=== PATIENT | male | born 1950 | race Caucasian/White ===

== ENCOUNTER → 2019-01-15 16:00 | Outpatient (CLI) | payer MEDICARE, BC, SELFPAY ==
--- NOTE | 2019-01-15 | DI.RAD.S_ITS ---
PROCEDURE: XR CERVICAL SPINE 4V OR 5V INDICATIONS: CERVICAL PAIN TECHNIQUE: 5 views of the cervical spine acquired. COMPARISON: None. FINDINGS: Bones: No fractures or dislocations to the C7 level. Oblique images demonstrate no bony foraminal stenoses. Mild endplate osteophyte formation at C4-C5, C5-C6, and C6-C7. Facet hypertrophy throughout the mid and lower cervical spine. Moderate foraminal stenoses bilaterally at C4-C5. Soft tissues: No prevertebral soft tissue swelling. IMPRESSION: 1. Multilevel degenerative disc and facet disease. 2. Bilateral C4-C5 foraminal stenoses. Dictated by: Silvio Morse M.D. on 01/15/2019 at 17:07 Approved by: Silvio Morse M.D. on 01/15/2019 at 17:08
== END ==
PROVIDERS: Visit Provider Chiropractor Independent Medical Examiner
DX: M50.30 Other cervical disc degeneration, unspecified cervical region (principal); M54.2 Cervicalgia
CPT/HCPCS: 72050

== ENCOUNTER → 2020-03-17 10:56 | Outpatient (CLI) | payer MEDICARE, BC, SELFPAY ==
--- NOTE | 2020-03-17 10:58 | DI.RAD.S_ITS ---
PROCEDURE: XR ANKLE RT MIN 3V INDICATIONS: tripped, r/o bony abnormality, h/o gout, r/o gout TECHNIQUE: 3 views of the ankle were acquired. COMPARISON: None. FINDINGS: Bones: No fractures or dislocations. There is minimal tibiotalar joint degeneration with minimal osteophytosis anteriorly. No discrete bony erosions. Ankle mortise is normally aligned. There is a small density along the medial talar dome. Soft tissues: There is a moderate tibiotalar joint effusion. Periarticular soft tissue swelling is demonstrated at the ankle most prominent laterally. Achilles tendon appears intact with a small enthesophyte at its insertion. Small linear calcifications are also demonstrated within the distal Achilles tendon as well as the proximal plantar fascia. IMPRESSION: 1. No fracture or dislocation. 2. Moderate-sized joint effusion. 3. Minimal osteophytosis along the tibiotalar joint suggestive of mild osteoarthritic changes. 4. 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 No discrete bony erosions. Dictated by: Harshal Caballero M.D. on 03/17/2020 at 11:17 Approved by: Harshal Caballero M.D. on 03/17/2020 at 11:27
== END ==
PROVIDERS: Referring Provider Physician Assistant; Visit Provider Physician Assistant
DX: M25.471 Effusion, right ankle (principal)
CPT/HCPCS: 73610

== ENCOUNTER → 2020-05-15 07:33 | Outpatient (CLI) | payer MEDICARE, BC, SELFPAY ==
[2020-05-15 09:14] LABS: Alanine Aminotransferase 23 IU/L (<50); Albumin 4.2 g/dL (3.5-5.0); Albumin Globulin Ratio 1.6 (1.0-2.8); Alkaline Phosphatase 64 U/L (38-126); Aspartate Aminotransferase 27 IU/L (17-59); BUN Creatinine Ratio 21.4 (6-22); Bilirubin Total 1.5 mg/dL (0.2-1.3); Blood Urea Nitrogen 24 mg/dL (9-20); Calcium 9.8 mg/dL (8.4-10.2); Carbon Dioxide 29 mmol/L (22-32); Chloride 106 mmol/L (98-107); Estimated Glomerular Filt Rate > 60.0 mL/min (>60); Globulin 2.7 g/dL (1.7-4.1); Glucose 120 mg/dL (80-110); HEMOLYSIS < 15 (0-50); Potassium 4.3 mmol/L (3.4-5.1); Sodium 139 mmol/L (137-145); Total Protein 6.9 g/dL (6.3-8.2); Uric Acid 8.8 mg/dL (3.5-8.5)
== END ==
PROVIDERS: PCP Internal Medicine; Referring Provider Internal Medicine; Visit Provider Internal Medicine
DX: E78.2 Mixed hyperlipidemia (principal); I10 Essential (primary) hypertension; M10.00 Idiopathic gout, unspecified site
CPT/HCPCS: 36415; 80053; 83036; 84550

== ENCOUNTER → 2020-07-01 14:40 | Outpatient (CLI) | payer MEDICARE, BC, SELFPAY ==
[2020-07-01 16:37] LABS: COVID19 -Nasal RAPID Negative (Negative)
== END ==
PROVIDERS: PCP Internal Medicine; Visit Provider Physician Assistant
DX: Z01.812 Encounter for preprocedural laboratory examination (principal); Z20.822 Contact with and (suspected) exposure to COVID-19
CPT/HCPCS: 87635; C9803

== ENCOUNTER → 2020-07-18 08:56 | Outpatient (CLI) | payer MEDICARE, BC, SELFPAY ==
[2020-07-18 10:08] LABS: BUN Creatinine Ratio 23.1 (6-22); Blood Urea Nitrogen 24 mg/dL (9-20); Calcium 9.8 mg/dL (8.4-10.2); Carbon Dioxide 31 mmol/L (22-32); Chloride 104 mmol/L (98-107); Estimated Glomerular Filt Rate > 60.0 mL/min (>60); Glucose 120 mg/dL (80-110); HEMOLYSIS < 15 (0-50); Potassium 4.4 mmol/L (3.4-5.1); Sodium 139 mmol/L (137-145); Uric Acid 5.9 mg/dL (3.5-8.5)
== END ==
PROVIDERS: PCP Internal Medicine; Referring Provider Internal Medicine; Visit Provider Internal Medicine
DX: R73.02 Impaired glucose tolerance (oral) (principal); M10.00 Idiopathic gout, unspecified site; I10 Essential (primary) hypertension
CPT/HCPCS: 36415; 80048; 84550

== ENCOUNTER → 2020-07-21 10:59 | Outpatient (CLI) | payer MEDICARE, BC, SELFPAY ==
[2020-07-21] MEDS: COVID-19 VACC #1, MRNA(MOD) 100 MCG/0.5 ML VIAL IM (11:03)
== END ==
PROVIDERS: PCP Internal Medicine; Visit Provider Internal Medicine
DX: Z23 Encounter for immunization (principal)
CPT/HCPCS: 0011A; 91301

== ENCOUNTER → 2020-08-18 11:52 | Outpatient (CLI) | payer MEDICARE, BC, SELFPAY ==
[2020-08-18] MEDS: COVID-19 VACC #2, MRNA(MOD) 100 MCG/0.5 ML VIAL IM (12:00)
== END ==
PROVIDERS: PCP Internal Medicine; Visit Provider Internal Medicine
DX: Z23 Encounter for immunization (principal)
CPT/HCPCS: 0012A; 91301

== ENCOUNTER → 2020-09-12 11:42 | Outpatient (CLI) | payer MEDICARE, OTHER, SELFPAY ==
[2020-09-12 12:46] LABS: BUN Creatinine Ratio 18.5 (6-22); Blood Urea Nitrogen 20 mg/dL (9-20); Calcium 9.7 mg/dL (8.4-10.2); Carbon Dioxide 31 mmol/L (22-32); Chloride 102 mmol/L (98-107); Estimated Glomerular Filt Rate > 60.0 mL/min (>60); Glucose 119 mg/dL (80-110); HEMOLYSIS < 15 (0-50); Potassium 4.2 mmol/L (3.4-5.1); Sodium 137 mmol/L (137-145); Uric Acid 5.7 mg/dL (3.5-8.5)
== END ==
PROVIDERS: PCP Internal Medicine; Referring Provider Internal Medicine; Visit Provider Internal Medicine
DX: I10 Essential (primary) hypertension (principal); M10.00 Idiopathic gout, unspecified site
CPT/HCPCS: 36415; 80048; 84550

== ENCOUNTER → 2022-01-11 10:31 | Outpatient (CLI) | payer MEDICARE, OTHER, SELFPAY ==
[2022-01-11 11:02] LABS: Hematocrit 48.8 % (41-53); Hemoglobin 16.9 g/dL (13.5-17.5); Mean Corpuscular HGB Conc 34.7 % (30-36); Mean Corpuscular Hemoglobin 34.7 PG (26-34); Mean Corpuscular Volume 99.9 fL (80-100); Platelet Count 197 X10^3/uL (150-400); Red Blood Cell Count 4.88 X10^6/uL (4.5-5.9); Red Cell Distribution Width 14.7 % (11.6-14.8); White Blood Cell Count 5.7 X10^3/uL (4.5-11.0)
[2022-01-11 11:11] LABS: Hemoglobin A1C% w Est Avg Glu 5.6 % (4.0-6.0)
[2022-01-11 11:43] LABS: Alanine Aminotransferase 23 IU/L (<50); Albumin 4.8 g/dL (3.5-5.0); Alkaline Phosphatase 67 U/L (38-126); Aspartate Aminotransferase 30 IU/L (17-59); BUN Creatinine Ratio 18.8 (6-22); Bilirubin Total 2.2 mg/dL (0.2-1.3); Blood Urea Nitrogen 19 mg/dL (9-20); Calcium 9.8 mg/dL (8.4-10.2); Carbon Dioxide 29 mmol/L (22-32); Chloride 100 mmol/L (98-107); Cholesterol 151 mg/dL (140-199); Estimated Glomerular Filt Rate > 60 mL/min (>60); Globulin 2.4 g/dL (1.7-4.1); Glucose 118 mg/dL (80-110); HDL Cholesterol 68 mg/dL (40-60); HEMOLYSIS < 15 (0-50); LDL Cholesterol Calculated 62 mg/dL (<100); Potassium 4.7 mmol/L (3.4-5.1); Sodium 139 mmol/L (137-145); Total Protein 7.2 g/dL (6.3-8.2); Triglycerides 103 mg/dL (35-150); Uric Acid 6.2 mg/dL (3.5-8.5)
[2022-01-11 12:11] LABS: Prostate Specific Antigen 1.54 ng/mL (0.10-4.00)
[2022-01-11 12:30] LABS: Vitamin B12 586 pg/mL (239-931)
[2022-01-12 16:44] LABS: Free T4, Direct Thyroxine 1.06 ng/dL (0.78-2.19)
== END ==
PROVIDERS: PCP Internal Medicine; Referring Provider Internal Medicine; Visit Provider Internal Medicine
DX: E78.2 Mixed hyperlipidemia (principal); R73.01 Impaired fasting glucose; N40.0 Benign prostatic hyperplasia without lower urinary tract symptoms; K22.2 Esophageal obstruction; Z85.810 Personal history of malignant neoplasm of tongue; E53.8 Deficiency of other specified B group vitamins; M10.9 Gout, unspecified
CPT/HCPCS: 36415; 80053; 80061; 82607; 83036; 84153; 84439; 84443; 84550; 85027

== ENCOUNTER → 2022-01-18 08:17 | Outpatient (CLI) | payer MEDICARE, OTHER, SELFPAY ==
--- NOTE | 2022-01-18 08:19 | DI.RAD.S_ITS ---
PROCEDURE: FL UPPER GI SERIES INDICATIONS: esophageal stricture COMPARISON: None. FINDINGS: KUB: Preprocedural counselor supervisor film demonstrates a normal bowel gas pattern. No suspicious abdominal calcifications. Visualized solid organ contours appear normal. Bony structures appear unremarkable. Esophagus: Esophageal mucosa is normal on air-contrast views. On single-contrast views, there were numerous episodes of moderate tertiary contractions resulting in delayed and occasional retrograde flow of ingested oral contrast. Otherwise, normal esophageal peristalsis. No extrinsic mass effects, or diverticula. No hiatal hernia or elicited gastroesophageal reflux. There is no definite focal stricture however, there was delayed transit of calibrated barium tablet through the gastroesophageal junction. The tablet persisted at the GE junction throughout most of this examination and eventually passed. Stomach: The stomach is normally distensible, with normal rugal fold thickness. No mucosal masses or ulcers. Pylorus and duodenal bulb appear normal in morphology. Duodenal folds are normal in thickness as well. IMPRESSION: 1. Suspected minimal/mild narrowing of the distal esophagus at the gastroesophageal junction with delayed transit of calibrated barium tablet into the stomach. No suspicious intraluminal filling defects or extrinsic mass effect in the region. No obvious stricture. Consider further evaluation with direct visualization/EGD. 2. Numerous episodes of moderate tertiary contractions/esophageal spasms resulting in delayed and occasional retrograde flow of ingested oral contrast. Dictated by: Hernan Walters M.D. on 01/18/2022 at 12:49 Approved by: Hernan Walters M.D. on 01/18/2022 at 12:55
== END ==
PROVIDERS: PCP Internal Medicine; Referring Provider Internal Medicine; Visit Provider Internal Medicine
DX: K22.2 Esophageal obstruction (principal)
CPT/HCPCS: 74240

== ENCOUNTER 2022-05-27 11:27 | Day surgery (SDC) | payer MEDICARE, OTHER, SELFPAY ==
--- NOTE | 2022-05-27 | PATH_ITS ---
[facility] Accession Number: [id number] . 01 Material submitted: . PART A: duodenum bulb - DUODENAL BULB BIOPSY PART B: gastrointestinal site - GASTRIC ULCER BIOPSY PART C: stomach - ANTRUM BIOPSY. Modifiers: ANTRUM PART D: esophagus - MID ESOPHAGUS BIOPSY. Modifiers: mid PART E: colon - COLON POLYPS X6 . 01 Diagnosis: A. Duodenum, Biopsy: Duodenal mucosa with focal erosion. No dysplasia or malignancy identified. See comment. . B. Specimen designated Gastric Ulcer, Biopsy: Gastric mucosa with mild chronic inflammation. No Helicobacer pylori organisms identified on immunohistochemical evaluation. No intestinal metaplasia, dysplasia or malignancy identified. . C. Gastric Antrum, Biopsy: Gastric mucosa with mild chronic inflammation. No Helicobacer pylori organisms identified on immunohistochemical evaluation. No intestinal metaplasia, dysplasia or malignancy identified. . D. Mid Esophagus, Biopsy: Squamous mucosa with slight reactive changes but with no significant diagnostic alterations. No fungal organisms identified on special stain. No evidence of eosinophilic esophagitis. No dysplasia or malignancy identified. . E. Colon Polyps, Biopsy: Sessile serrated adenoma x1. Tubular adenoma x5. Hyperplastic polyp x1. [facility] 05/31/2022 1140 Local . 01 Comment: E. The features raise a differential including peptic duodenitis or NSAID induced injury, among other possibilities. . 01 Electronically signed: . Alexandra Ashby MD, Pathologist NPI- [id number] . 01 Gross description: . Part A: DUODENAL BULB BIOPSY: Received in formalin are 2 fragment(s) of french, soft tissue measuring 0.2 x 0.1 x 0.1 cm to 0.1 x 0.1 x 0.1 cm submitted entirely in 1 cassette(s) Part B: GASTRIC ULCER BIOPSY: Received in formalin is 1 fragment(s) of french, soft tissue measuring 0.3 x 0.2 x 0.2 cm submitted entirely in 1 cassette(s) Part C: ANTRUM BIOPSY: Received in formalin is 1 fragment(s) of french, soft tissue measuring 0.3 x 0.2 x 0.1 cm submitted entirely in 1 cassette(s) Part D: MID ESOPHAGUS BIOPSY: Received in formalin are multiple fragment(s) of french, soft tissue measuring 0.5 x 0.3 x 0.1 cm in aggregate submitted entirely in 1 cassette(s) Part E: COLON POLYPS X6: Received in formalin are multiple fragment(s) of french, soft tissue measuring 1.3 x 0.3 x 0.1 cm in aggregate submitted entirely in 1 cassette(s) /CPE 05/28/2022 0855 Local . 01 Microscopic: . B-C. An immunohistochemical stain was performed to evaluate for Helicobacter organisms and is negative. The control stain showed appropriate reactivity. . 01 Pathologist provided ICD-10: K26.9, K29.70, D12.6, Z12.11, R13.10 . 01 CPT . 273048, 837026, 603070, 454236, [id number], 556012 Specimen Comment: A courtesy copy of this report has been sent to [phone] Performed at: 01 [facility] [address] [place] [address], [place], [place] [id number] MD Harshal Pierre MD Phone: [phone]
--- NOTE | 2022-05-27 11:43 | PM.HP.1 ---
History of Present Illness History of Present Illness Date Patient Seen: 05/27/22 Time Patient Seen: 11:43 Chief complaint: EGD/Colonoscopy Narrative: I reviewed my recent office note. No significant changes. 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 Impaired fasting glucose Mixed hyperlipidemia Polyneuropathy, unspecified Tinea unguium Family & Social History Tobacco & Substance use: Smoking Status Former smoker Meds Home Medications and Allergies Home Medications Medication Instructions Recorded Confirmed Type triamterene 37.5 1 cap PO DAILY 11/25/18 01/11/22 History mg-hydrochlorothiazide 25 mg capsule levomefolate 500 mcg-niacinamide 1 tab PO BID 01/11/22 01/11/22 History 750 bl-laqftd-Ps-selen-chrom tablet (Nicotinamide (with chromium)) loratadine 10 mg tablet 10 mg PO DAILY Itching skin 01/11/22 01/11/22 History lorazepam 0.5 mg tablet 0.5 mg PO BEDTIME PRN anxiety #20 01/11/22 01/11/22 Rx tabs prednisone 10 mg tablet See Rx Instructions .Route 01/11/22 01/11/22 Rx .COMPLEX #20 tabs allopurinol 300 mg tablet 300 mg PO DAILY Gout #90 tabs 05/06/22 Rx atorvastatin 20 mg tablet (Lipitor) 20 mg PO DAILY #90 tabs 05/06/22 Rx triamterene 37.5 1 cap PO DAILY #90 caps 05/06/22 Rx mg-hydrochlorothiazide 25 mg capsule lisinopril 10 mg tablet 10 mg PO DAILY #90 tabs 05/13/22 Rx Allergies Allergy/AdvReac Type Severity Reaction Status Date / Time fluvastatin [From Lescol] Allergy Severe Hives Verified 01/11/22 07:42 Review of Systems Review of Systems ROS: Yes All systems reviewed with the patient and are negative except as otherwise documented Exam Const General: cooperative HENMT Head: normal to inspection Eyes General: appearance normal, both eyes and all related structures Neck Neck: normal visual inspection Chest Chest: normal inspection of the chest Resp Effort & Inspection: normal respiratory effort Cardio Rate: regular rate GI Inspection: normal to inspection Skin General: no rashes or lesions noted Neuro General: patient alert and patient awake Extrem General: normal to inspection and no pedal edema Psych Appearance: grossly normal Assessment & Plan Assessment & Plan narrative: 71-year-old male with a history of esophageal stricture and dilatations now with recurrent dysphagia. EGD for possible dilatation and colonoscopy for colon cancer screening are pursued today. Time Spent With Patient Critical Care time: I spent a total of [] minutes of critical care time on this patient's care today; this time is exclusive of procedural time.
[2022-05-27 12:02] VITALS: BP 139/86; PULSE 97; RESP 18; TEMP 36.4; O2SAT 97; BMI 29.9
[2022-05-27] MEDS: LACTATED RINGERS 1,000 ML 84 ML IV (12:02)
--- NOTE | 2022-05-27 12:47 | PM.PREOP ---
Pre-operative Note COVID-19 COVID-19 status: Negative Result date/Date tested (Pos, Neg/Pending): 05/27/22 Criteria for continued procedure: Possibility delay results in more complex future surgery or treatment Interval Note History & Physical reviewed/Exam performed by Physician: Yes Changes to H&P: No ASA Class (for procedural sedation): II
--- NOTE | 2022-05-27 13:47 | P.OP.EGD&C_ITS ---
Operative Date/Time/Diagnoses Date of procedure: 05/27/22 Time of procedure: 13:47 Pre-op diagnosis: Dysphagia colon cancer screening Post-op diagnosis: same Procedure & Clinicians Study performed: EGD with biopsies and balloon dilatation plus colonoscopy with hot snare polypectomy cold snare polypectomy and cold forceps polypectomy Same procedure as scheduled: Yes Indications: Dysphagia colon cancer screening Surgeon: Lamin Esposito Procedure Notes SCOAP/Timeout: Done Procedure in detail: After the risks and benefits were explained, written and verbal informed consent was obtained. The patient was brought into the procedure room and placed into the left lateral decubitus position. Please see nurse kieselguhr regenerator operator notes for sedation details. The scope was introduced into the mouth through the bite block and advanced under direct visualization to the 2nd portion of the duodenum. The scope was slowly withdrawn carefully examining the mucosa for any defects or lesions. Retroflexed views were accomplished in the stomach. The stomach was decompressed, the scope was then removed from the patient who tolerated the procedure well. The patient was then turned around, a digital rectal examination accomplished. The scope was introduced into the rectum and advanced to the cecum as identified by the appendiceal orifice and ileocecal valve. The scope was slowly withdrawn to carefully examine the mucosa for any defects or lesions. Multiple direct views were made through the dentate line for exclusion of pathology. The colon was decompressed. The the scope was removed from the patient who tolerated the procedure well. Bowel prep adequate Adult colonoscope Scope withdrawal time: 16 minutes Sedation minutes: 54 Complications: none Impression: 1. Duodenum: There were scattered erosions noted in the duodenal bulb. The 2nd portion appeared normal with the exception of a few benign-appearing small submucosal lipomas the demonstrated fairly classic pillowing. Biopsies were taken from the eroded mucosa in the proximal duodenum. 2. Stomach: There was evidence of an old fairly well healed well epithelialized ulcer with asymmetric borders along the greater curve. I took samples from the area of this ulcer for histopathologic analysis. Otherwise the antral mucosa appeared erythematous with patchy white areas. We took separate biopsies from the antrum as well. Retroflexed views of the LES were unremarkable. 3. Esophagus: The squamocolumnar junction correlated with the top of the gastric folds. The GEJ was at approximately 44-45 cm from the incisors. On initial inspection it appeared as though there was couple of nonobstructing partial Schatzki rings in the distal esophagus. I elected to perform a balloon dilatation using the 15, 16.5, 18 mm balloon and holding it at each dimension for approximately 1 minute each time. There was a small rent in the mucosa at the GE junction consistent with dilatation. While we were dilating the esophagus closer inspection of the distal esophageal mucosa suggested evidence of erosive change consistent with at least LA grade C esophagitis. In the midesophagus there were areas of some exudate versus white plaque somewhat linear in many locations. Ideally we would have obtained a brushing for exclusion of yeast but the endoscopy lab did not have the appropriate brush so I elected to take a couple of biopsies from these areas in midesophagus. 4. Colon: The patient had fairly extensive diverticulosis from the sigmoid through into transverse colon. In the right colon there were 5 diminutive polyps removed by way of a combination of cold snare (4) and cold forceps (1). There was a 6th polyp in the transverse that was perhaps 6-7 mm in greatest dimension and hot snare was utilized for this one. All of these were submitted as ?colon polyps?. No additional pathology was appreciated throughout. Perhaps grade 1 to grade 2 internal hemorrhoids. Endoscopic diagnosis 1. Nonobstructing distal Schatzki's rings status post balloon dilatation to 18 mm 2. LA grade C erosive esophagitis 3. Possible esophageal candidiasis (versus more extensive erosive esophagitis) 4. Healing gastric ulcer 5. Gastropathy 6. Duodenal erosions 7. Duodenal lipoma 8. Multiple colon polyps 9. Diverticulosis 10. Grade 1-2 hemorrhoids Post-procedure Plan for aftercare: 1. Await histopathology. 2. Repeat colonoscopy will likely be suggested for 3 years. 3. The patient is encouraged to initiate a course of omeprazole 20 mg once daily. 4. Follow up GI clinic Disposition: PACU
[2022-05-27 13:51] VITALS: BP 100/65; PULSE 75; RESP 15; TEMP 36.3; O2SAT 96
[2022-05-27 13:54] VITALS: BP 108/62; PULSE 76; RESP 15; O2SAT 95
[2022-05-27 13:59] VITALS: BP 120/76; PULSE 75; RESP 19; O2SAT 98
[2022-05-27 14:04] VITALS: BP 118/69; PULSE 71; PULSE 72; RESP 20; RESP 70; O2SAT 98; O2SAT 99
[2022-05-27 14:10] VITALS: BP 121/82; PULSE 70; RESP 11; TEMP 36.6; O2SAT 98
[2022-05-27 14:34] LABS: COVID19 -Nasal RAPID Negative (Negative)
== END 2022-05-27 14:20 | disposition home or self-care (01) ==
PROVIDERS: PCP Internal Medicine; Referring Provider Internal Medicine Gastroenterology; Visit Provider Internal Medicine Gastroenterology
PROC: 0DJD8ZZ Inspection of Lower Intestinal Tract, Via Natural or Artificial Opening Endoscopic (ICD-10-PCS; CPT 45378; principal; 2022-05-27 12:30)
PROC: 0DJ08ZZ Inspection of Upper Intestinal Tract, Via Natural or Artificial Opening Endoscopic (ICD-10-PCS; CPT 43235; 2022-05-27 12:30)
DX: Z12.11 Encounter for screening for malignant neoplasm of colon (principal); R13.10 Dysphagia, unspecified; Z20.822 Contact with and (suspected) exposure to COVID-19; K61.0 Anal abscess; K57.30 Diverticulosis of large intestine without perforation or abscess without bleeding; D17.5 Benign lipomatous neoplasm of intra-abdominal organs; K31.9 Disease of stomach and duodenum, unspecified; K20.80 Other esophagitis without bleeding; K22.2 Esophageal obstruction; K26.9 Duodenal ulcer, unspecified as acute or chronic, without hemorrhage or perforation; D12.2 Benign neoplasm of ascending colon; D12.3 Benign neoplasm of transverse colon; D12.6 Benign neoplasm of colon, unspecified; K29.50 Unspecified chronic gastritis without bleeding
CPT/HCPCS: 43249; 45385; 45380; 43239; 87635; C9803; J2704

== ENCOUNTER → 2022-05-29 10:25 | Outpatient (CLI) | payer MEDICARE, OTHER, SELFPAY ==
--- NOTE | 2022-05-29 10:27 | DI.RAD.S_ITS ---
PROCEDURE: XR SHOULDER RT MIN 2V INDICATIONS: eval R shoulder pain s/p trauma TECHNIQUE: 3 views of the shoulder were acquired. COMPARISON: None. FINDINGS: Bones: No fractures or dislocations. No suspicious bony lesions. Visualized ribs appear intact. Soft tissues: No suspicious soft tissue calcifications. IMPRESSION: No acute radiographic findings. If pain persists, followup imaging in 5-7 days is recommended to exclude occult fracture. Dictated by: Eliana Carbajal M.D. on 05/29/2022 at 10:49 Approved by: Eliana Carbajal M.D. on 05/29/2022 at 10:49
== END ==
PROVIDERS: PCP Internal Medicine; Referring Provider Registered Nurse Diabetes Educator; Visit Provider Registered Nurse Diabetes Educator
DX: M25.511 Pain in right shoulder (principal)
CPT/HCPCS: 73030

== ENCOUNTER → 2022-07-25 10:17 | Outpatient (CLI) | payer MEDICARE, OTHER, SELFPAY ==
[2022-07-25 11:22] LABS: Hemoglobin A1C% w Est Avg Glu 5.8 % (4.0-6.0)
[2022-07-25 11:35] LABS: Blood Urea Nitrogen 28 mg/dL (9-20); Calcium 9.6 mg/dL (8.4-10.2); Carbon Dioxide 29 mmol/L (22-32); Chloride 100 mmol/L (98-107); Estimated Glomerular Filt Rate > 60 mL/min (>60); Glucose 107 mg/dL (80-110); HEMOLYSIS < 15 (0-50); Potassium 4.4 mmol/L (3.4-5.1); Sodium 139 mmol/L (137-145)
[2022-07-25 12:01] LABS: TSH w/ Reflex to FT4 5.66 uIU/mL (0.47-4.68)
[2022-07-25 12:32] LABS: Free T4, Direct Thyroxine 0.89 ng/dL (0.78-2.19)
== END ==
PROVIDERS: PCP Internal Medicine; Referring Provider Internal Medicine; Visit Provider Internal Medicine
DX: R73.01 Impaired fasting glucose (principal); I10 Essential (primary) hypertension; R79.89 Other specified abnormal findings of blood chemistry
CPT/HCPCS: 36415; 80048; 83036; 84439; 84443

== ENCOUNTER → 2023-07-28 08:35 | Outpatient (CLI) | payer MEDICARE, OTHER, SELFPAY ==
--- NOTE | 2023-07-28 08:38 | DI.RAD.S_ITS ---
PROCEDURE: XR CHEST 2V INDICATIONS: shortness of breath TECHNIQUE: 2 views of the chest were acquired. COMPARISON: None. FINDINGS: Surgical changes and devices: On single contrast views Lungs and pleura: Lungs are clear. No pleural effusions or pneumothorax. Mediastinum: Mediastinal contours are normal. Heart size is enlarged. Bones and chest wall: No suspicious bony abnormalities. Soft tissues appear unremarkable. IMPRESSION: Cardiomegaly. No focal airspace consolidation. Approved by: Deisy Eldridge M.D. on 07/28/2023 at 12:11
[2023-07-28 10:18] LABS: Hematocrit 46.3 % (41-53); Hemoglobin 15.9 g/dL (13.5-17.5); Mean Corpuscular HGB Conc 34.2 % (30-36); Mean Corpuscular Hemoglobin 35.8 PG (26-34); Mean Corpuscular Volume 104.7 fL (80-100); Platelet Count 174 X10^3/uL (150-400); Red Blood Cell Count 4.42 X10^6/uL (4.5-5.9); Red Cell Distribution Width 14.7 % (11.6-14.8); White Blood Cell Count 5.1 X10^3/uL (4.5-11.0)
[2023-07-28 10:45] LABS: Hemoglobin A1C% w Est Avg Glu 5.5 % (4.0-6.0)
[2023-07-28 10:53] LABS: Aspartate Aminotransferase 37 IU/L (17-59); BUN Creatinine Ratio 20.9 (6-22); Blood Urea Nitrogen 24 mg/dL (9-20); Carbon Dioxide 25 mmol/L (22-32); Chloride 101 mmol/L (98-107); Cholesterol 137 mg/dL (140-199); Estimated Glomerular Filt Rate > 60 mL/min (>60); Glucose 100 mg/dL (80-110); HDL Cholesterol 62 mg/dL (40-60); HEMOLYSIS < 15 (0-50); LDL Cholesterol Calculated 62 mg/dL (<100); Potassium 4.5 mmol/L (3.4-5.1); Sodium 136 mmol/L (137-145); Triglycerides 64 mg/dL (35-150)
[2023-07-28 11:20] LABS: TSH w/ Reflex to FT4 7.31 uIU/mL (0.47-4.68)
[2023-07-28 11:54] LABS: Free T4, Direct Thyroxine 0.84 ng/dL (0.78-2.19)
== END ==
PROVIDERS: PCP Internal Medicine; Referring Provider Internal Medicine; Visit Provider Internal Medicine
DX: R06.2 Wheezing (principal); R06.02 Shortness of breath; R79.89 Other specified abnormal findings of blood chemistry; E78.2 Mixed hyperlipidemia; I10 Essential (primary) hypertension; R73.01 Impaired fasting glucose
CPT/HCPCS: 36415; 71046; 80048; 80061; 83036; 84439; 84443; 84450; 85027; 93005

== ENCOUNTER → 2023-08-26 | Outpatient (CLI) | payer MEDICARE, OTHER, SELFPAY ==
--- NOTE | 2023-08-27 19:24 | DI.NM.S_ITS ---
DATE OF SERVICE: 08/26/2023 PROCEDURE PERFORMED: Exercise treadmill stress and rest myocardial perfusion imaging with gating to assess ejection fraction and regional wall motion. DATE OF SERVICE: August 26, 2023. ORDERING PROVIDER: Hira Fernandez MD. INDICATIONS: The patient is a 72-year-old hypertensive male with significant exertional dyspnea. TREADMILL TESTING: The patient was able to exercise for only 3 minutes on a standard Mehdi protocol, going an additional 1 minute, 32 seconds at Stage I, suggesting markedly reduced exercise capacity with an BOA of +42%, achieving only 4.6 METs. He had a normal normal heart rate and blood pressure response to exercise, achieving a maximum heart rate of 134 bpm (92% of his predicted maximum). He had no chest discomfort, but had limiting dyspnea. His resting ECG shows sinus rhythm and occasional PVCs, and mild diffuse ST and T-wave abnormalities. There are no significant ST-segment shifts with stress. He continued to have PVCs, rarely in couplets, but no other complex ventricular ectopy. At 3 minutes 20 seconds of exercise at a heart rate of 124 BPM, 25.4 mCi of technetium-99m Myoview was injected and he was imaged 15 minutes later using a gated SPECT acquisition protocol. The day prior while at rest, he had been injected with 24.7 mCi of technetium-99m Myoview and was imaged 15 minutes later, again using a gated SPECT acquisition protocol. FINDINGS: 1. Raw data. There is fair myocardial tracer uptake. The right ventricle appears to be somewhat enlarged with increased tracer uptake which can be an indication of a right ventricular overload condition, but clinical correlation is needed. The lung/heart ratio is normal at 0.33 with a normal TID ratio of 0.91. 2. Quantitated gated SPECT: Post-stress ejection fraction is estimated at 57% without any focal wall motion abnormality, and specifically the inferior wall appears to have normal contractility. The resting ejection fraction is calculated at 47%, although visually appears similar to that of the post-stress ejection fraction, and left ventricular volumes are mildly increased with a resting end-diastolic volume of 154 mL. 3. Myocardial perfusion imaging: Post-stress supine images show mild to moderately reduced tracer activity in the inferior wall, predominantly in the proximal and mid inferior wall in a pattern that consistent with diaphragmatic attenuation, supported by its resolution on the prone images, revealing a homogeneous, normal perfusion pattern without any perfusion defects. The resting images show an identical perfusion pattern to that of the post-stress supine images without any significant improvement in the inferior defect or elsewhere. IMPRESSION: 1. Probable normal myocardial perfusion study. 2. Moderate, fixed perfusion defect in the proximal and mid inferior wall that resolves on prone imaging, most consistent with diaphragmatic attenuation artifact. There is no compelling evidence for any myocardial ischemia or previous myocardial infarction. 3. Normal left ventricular systolic function without any focal wall motion abnormality but mildly increased left ventricular volumes. The right ventricle is mildly enlarged with increased tracer uptake, which can be an indication of a right ventricular overload condition but clinical correlation is needed. 4. Markedly reduced exercise capacity without angina or ECG evidence of ischemia. He had occasional PVCs at rest with a slight increase with stress, including ventricular couplets, but no other complex ventricular ectopy. Reji Givens - ANGELY/mercedes/ doc#: [id number]/job#: [id number] dd: 08/27/2023 16:22:00 dt: 08/27/2023 19:06:00 DICTATING /COPIES TO: Igor Leyva; Hira Fernandez MD COPIES MNE: JOSE;
== END ==
PROVIDERS: PCP Internal Medicine; Referring Provider Internal Medicine; Visit Provider Internal Medicine
DX: R06.02 Shortness of breath (principal); R06.09 Other forms of dyspnea
CPT/HCPCS: 78452; 93017; A9502

== ENCOUNTER → 2023-09-30 14:43 | Outpatient (CLI) | payer MEDICARE, OTHER, SELFPAY ==
--- NOTE | 2023-09-30 14:45 | DI.RAD.S_ITS ---
PROCEDURE: XR CERVICAL SPINE MIN 6V INDICATIONS: cervical ddd/djd/pain TECHNIQUE: 7 views of the cervical spine acquired. COMPARISON: [facility], CR, XR CERVICAL SPINE 4V OR 5V, 01/15/2019, 16:22. FINDINGS: Bones: No fractures or dislocations to the T1 level. Oblique images demonstrate no bony foraminal stenoses. Moderate disc height loss at C6-7, mild disc height loss at C4-5 and C5-6, mildly progressed since prior. No abnormal motion with flexion or extension. Soft tissues: No prevertebral soft tissue swelling. Surgical clips project over the neck. IMPRESSION: Mild to moderate, multilevel degenerative disc disease, slightly progressed from prior. Dictated by: Paddy Rivas M.D. on 09/30/2023 at 16:44 Approved by: Paddy Rivas M.D. on 09/30/2023 at 16:45
== END ==
PROVIDERS: PCP Internal Medicine; Referring Provider Internal Medicine; Visit Provider Internal Medicine
DX: M47.812 Spondylosis without myelopathy or radiculopathy, cervical region (principal); M50.321 Other cervical disc degeneration at C4-C5 level
CPT/HCPCS: 72052

== ENCOUNTER → 2024-01-22 14:50 | Outpatient (CLI) | payer MEDICARE, OTHER, SELFPAY ==
--- NOTE | 2024-01-22 14:51 | DI.RAD.S_ITS ---
PROCEDURE: XR ANKLE LT MIN 3V INDICATIONS: pain TECHNIQUE: 3 views of the ankle were acquired. COMPARISON: None. FINDINGS: Bones: No fractures or dislocations. Ankle mortise is normally aligned. No suspicious bony lesions. Enthesophyte noted along the inferior calcaneus. Soft tissues: No tibiotalar joint effusion. Achilles tendon shows faint linear calcifications.. IMPRESSION: Calcaneal spur. Mild calcifications noted in the Achilles tendon. Dictated by: Eliseo Carpenter M.D. on 01/22/2024 at 15:53 Approved by: Eliseo Carpenter M.D. on 01/22/2024 at 15:56
== END ==
PROVIDERS: PCP Internal Medicine; Referring Provider Physician Assistant; Visit Provider Physician Assistant
DX: M76.60 Achilles tendinitis, unspecified leg (principal); M77.32 Calcaneal spur, left foot
CPT/HCPCS: 73610

== ENCOUNTER → 2024-01-23 09:12 | Outpatient (CLI) | payer MEDICARE, OTHER, SELFPAY ==
--- NOTE | 2024-01-23 09:14 | DI.US.S_ITS ---
PROCEDURE: US PERIPH VENOUS LOW EXTREM LT INDICATIONS: Swelling of lower extremity TECHNIQUE: Real-time imaging, as well as color and pulse Doppler interrogation, were performed of the lower extremity deep veins from the inguinal ligament to the popliteal fossa, with documentation of the visualized calf veins. COMPARISON: None. FINDINGS: The common femoral, femoral, popliteal, and the visualized calf veins are normally compressible, and free of intraluminal thrombus. Color and pulse Doppler demonstrate normal phasic intraluminal flow. There is normal augmentation response to distal compression maneuver. A few of the waveforms demonstrate increased pulsatility. Please correlate with right heart failure. IMPRESSION: No findings of lower extremity deep venous thrombosis. Dictated by: Cristhian Fong M.D. on 01/23/2024 at 9:44 Approved by: Cristhian Fong M.D. on 01/23/2024 at 9:45
[2024-01-23 12:27] LABS: BUN Creatinine Ratio 22.7 (6-22); Blood Urea Nitrogen 25 mg/dL (9-20); Calcium 9.3 mg/dL (8.4-10.2); Carbon Dioxide 25 mmol/L (22-32); Chloride 105 mmol/L (98-107); Creatine Kinase 166 U/L (55-170); Estimated Glomerular Filt Rate > 60 mL/min (>60); Glucose 101 mg/dL (80-110); HEMOLYSIS < 15 (0-50); Potassium 4.3 mmol/L (3.4-5.1); Sodium 137 mmol/L (137-145); Uric Acid 4.9 mg/dL (3.5-8.5)
== END ==
PROVIDERS: PCP Internal Medicine; Referring Provider Physician Assistant; Visit Provider Physician Assistant
DX: M79.89 Other specified soft tissue disorders (principal); M76.62 Achilles tendinitis, left leg
CPT/HCPCS: 36415; 80048; 82550; 84550; 93971

== ENCOUNTER → 2024-02-05 12:45 | Outpatient (CLI) | payer MEDICARE, OTHER, SELFPAY ==
--- NOTE | 2024-02-05 12:47 | DI.MRI.S_ITS ---
PROCEDURE: MR ANKLE LT WO CON INDICATIONS: LEFT ACHILLES TENDINITIS TECHNIQUE: Noncontrast sagittal T1 spin echo and T2 fast spin echo with fat saturation, axial proton density fast spin echo and T2 fast spin echo with fat saturation, coronal T1 spin echo and T2 fast spin echo with fat saturation through the ankle/hindfoot. COMPARISON: None. FINDINGS: Image quality: Excellent. Bones and joints: Diffuse soft tissue swelling and edema surrounding distal left lower leg and left midfoot and hindfoot. No discrete drainable fluid collection. There is mild to moderate midfoot and hindfoot joint osteoarthritis most notably involving 2nd through 4th TMT joints. No fracture or dislocation. Small osteochondral injury involving anterolateral weight-bearing portion of talar dome and adjacent distal tibial plafond. Small tibiotalar and subtalar joint effusion is seen, no loose bodies. Well-defined plantar calcaneal enthesophyte is noted. Medial structures: The posterior tibialis tendon is thickened with small amount of fluid distending tendon sheath at the level of distal talus and talonavicular joint. The flexor digitorum longus, and flexor hallucis longus tendons are intact. The posterior tibial neurovascular bundle appears normal within the tarsal tunnel, without extrinsic mass effect. The deltoid ligament and spring ligament are intact. Lateral structures: The anterior talofibular ligament thickened with intrasubstance T2 hyperintense signal. The calcaneofibular, and posterior talofibular ligaments appear mildly thickened with intrasubstance T2 hyperintense signal. More superiorly, the anterior and posterior tibiofibular ligaments appear intact, as is the intermalleolar ligament. The tibiofibular syndesmosis is normal in width at 2 mm or less. The peroneus longus and brevis tendons demonstrate normal location and morphology. Adjacent bony peroneal tubercle and retrotrochlear prominence are normal in size. The sinus tarsi demonstrates normal fatty signal, without edema, fibrosis, or cyst formation. Visualized sinus tarsi components (cervical ligament, interosseous talocalcaneal ligament, roots of the inferior extensor retinaculum) appear normal. Anterior structures: The tibialis anterior, extensor hallucis longus, and extensor digitorum longus tendons appear intact. The dorsal talonavicular ligament appears intact. Posterior and plantar structures: Thickened Achilles tendon with intrasubstance T2 hyperintense signal involving 4.3 cm segment of Achilles tendon approximately 4 cm from its insertion of posterior calcaneus consistent with low to moderate grade partial-thickness tear involving less than 50% of the Achilles tendon. Medial and lateral bands of the plantar fascia are of normal thickness. No abductor digiti quinti muscle atrophy to suggest Duarte neuropathy. IMPRESSION: 1. Low to moderate grade partial-thickness tear involving 4.3 cm segment of Achilles tendon approximately 4 cm from its insertion on posterior calcaneus. No full-thickness Achilles tendon rupture. 2. Soft tissue swelling and edema surrounding distal lower leg and extending to hindfoot and midfoot. No discrete drainable fluid collection. 3. [id number] osteoarthritic changes in midfoot and hindfoot more notably involving tibiotalar joint and 2nd through 4th TMT joints. No fracture or dislocation. Small osteochondral injuries involving anterior lateral talar dome weight-bearing portion and adjacent distal tibial plafond. Small joint effusion, no loose bodies. 4. Low-grade tenosynovitis involving posterior tibialis tendon near its distal insertion. 5. Sprain/low to moderate grade partial-thickness tear involving anterior talofibular ligament. Low-grade sprain involving posterior talofibular ligament and calcaneofibular ligament. No full-thickness ankle ligament rupture. Dictated by: James Harrison M.D. on 02/06/2024 at 8:55 Approved by: James Harrison M.D. on 02/06/2024 at 9:03
== END ==
PROVIDERS: PCP Internal Medicine; Referring Provider Orthopaedic Surgery Foot and Ankle Surgery; Visit Provider Orthopaedic Surgery Foot and Ankle Surgery
DX: S86.012A Strain of left Achilles tendon, initial encounter (principal); S93.492A Sprain of other ligament of left ankle, initial encounter; S93.412A Sprain of calcaneofibular ligament of left ankle, initial encounter; M76.62 Achilles tendinitis, left leg; M79.89 Other specified soft tissue disorders; M25.475 Effusion, left foot; M65.862 Other synovitis and tenosynovitis, left lower leg
CPT/HCPCS: 73721

== ENCOUNTER → 2024-06-11 10:57 | Outpatient (CLI) | payer MEDICARE, OTHER, SELFPAY ==
[2024-06-11 11:58] LABS: BUN Creatinine Ratio 26.3 (6-22); Blood Urea Nitrogen 31 mg/dL (9-20); Calcium 10.1 mg/dL (8.4-10.2); Carbon Dioxide 32 mmol/L (22-32); Chloride 101 mmol/L (98-107); Estimated Glomerular Filt Rate > 60 mL/min (>60); Glucose 105 mg/dL (80-110); HEMOLYSIS < 15 (0-50); Potassium 4.2 mmol/L (3.4-5.1); Sodium 136 mmol/L (137-145)
== END ==
PROVIDERS: PCP Internal Medicine; Referring Provider Family Medicine; Visit Provider Family Medicine
DX: R60.0 Localized edema (principal); I87.2 Venous insufficiency (chronic) (peripheral)
CPT/HCPCS: 36415; 80048

== ENCOUNTER → 2024-08-05 10:55 | Outpatient (CLI) | payer MEDICARE, OTHER, SELFPAY ==
[2024-08-05 11:54] LABS: Alanine Aminotransferase 51 IU/L (<50); Albumin 4.8 g/dL (3.5-5.0); Albumin Globulin Ratio 2.4 (1.0-2.8); Alkaline Phosphatase 72 U/L (38-126); Aspartate Aminotransferase 71 IU/L (17-59); BUN Creatinine Ratio 25.4 (6-22); Bilirubin Total 2.9 mg/dL (0.2-1.3); Blood Urea Nitrogen 32 mg/dL (9-20); Carbon Dioxide 29 mmol/L (22-32); Chloride 100 mmol/L (98-107); Cholesterol 134 mg/dL (140-199); Estimated Glomerular Filt Rate 59 mL/min (>60); Glucose 115 mg/dL (80-110); HDL Cholesterol 76 mg/dL (40-60); HEMOLYSIS < 15 (0-50); LDL Cholesterol Calculated 45 mg/dL (<100); Sodium 139 mmol/L (137-145); Total Protein 6.8 g/dL (6.3-8.2); Triglycerides 67 mg/dL (35-150)
[2024-08-05 12:03] LABS: Add Manual Diff / Slide Review NO; Basophils Absolute Auto 0 /uL (0-100); Basophils Percent Auto 0.8 % (0-2); Eosinophils Absolute Auto 500 /uL (0-450); Eosinophils Percent Auto 9.6 % (2-4); Hematocrit 45.9 % (41-53); Hemoglobin 15.3 g/dL (13.5-17.5); Lymphocytes Absolute Auto 400 /uL (1100-4500); Lymphocytes Percent Auto 7.7 % (25-40); Mean Corpuscular HGB Conc 33.3 % (30-36); Mean Corpuscular Hemoglobin 36.9 PG (26-34); Mean Corpuscular Volume 110.9 fL (80-100); Monocytes Absolute Auto 800 /uL (0-900); Monocytes Percent Auto 15.7 % (3-14); Neutrophils Absolute Auto 3200 /uL (1500-7000); Neutrophils Percent Auto 66.2 % (50-75); Platelet Count 180 X10^3/uL (150-400); Red Blood Cell Count 4.13 X10^6/uL (4.5-5.9); Red Cell Distribution Width 16.7 % (11.6-14.8); White Blood Cell Count 4.9 X10^3/uL (4.5-11.0)
[2024-08-05 12:22] LABS: TSH w/ Reflex to FT4 4.53 uIU/mL (0.47-4.68)
[2024-08-05 13:13] LABS: Anisocytosis 2+; Macrocytosis 2+
== END ==
PROVIDERS: PCP Internal Medicine; Referring Provider Family Medicine; Visit Provider Family Medicine
DX: R60.0 Localized edema (principal); R79.89 Other specified abnormal findings of blood chemistry; E78.2 Mixed hyperlipidemia; D75.89 Other specified diseases of blood and blood-forming organs; I10 Essential (primary) hypertension
CPT/HCPCS: 36415; 80053; 80061; 84443; 85025

== ENCOUNTER → 2024-09-09 10:22 | Outpatient (CLI) | payer MEDICARE, OTHER, SELFPAY ==
[2024-09-09 11:14] LABS: Alanine Aminotransferase 46 IU/L (<50); Albumin 4.5 g/dL (3.5-5.0); Albumin Globulin Ratio 2.3 (1.0-2.8); Alkaline Phosphatase 96 U/L (38-126); Aspartate Aminotransferase 56 IU/L (17-59); Bilirubin Total 2.7 mg/dL (0.2-1.3); Blood Urea Nitrogen 33 mg/dL (9-20); Calcium 9.7 mg/dL (8.4-10.2); Carbon Dioxide 27 mmol/L (22-32); Chloride 103 mmol/L (98-107); Estimated Glomerular Filt Rate > 60 mL/min (>60); Glucose 117 mg/dL (80-110); HEMOLYSIS < 15 (0-50); Potassium 4.5 mmol/L (3.4-5.1); Sodium 140 mmol/L (137-145); Total Protein 6.5 g/dL (6.3-8.2)
[2024-09-09 11:43] LABS: Prostate Specific Antigen 2.18 ng/mL (0.10-4.00)
[2024-09-09 11:52] LABS: Hemoglobin A1C% w Est Avg Glu 5.3 % (4.0-6.0)
== END ==
PROVIDERS: PCP Internal Medicine; Referring Provider Internal Medicine; Visit Provider Internal Medicine
DX: R73.01 Impaired fasting glucose (principal); N40.1 Benign prostatic hyperplasia with lower urinary tract symptoms; N13.8 Other obstructive and reflux uropathy; I10 Essential (primary) hypertension
CPT/HCPCS: 36415; 80053; 83036; 84153

== ENCOUNTER 2025-05-06 10:23 | Inpatient (IN) | payer MEDICARE, OTHER, SELFPAY ==
[2025-05-06] VITALS (15 sets, daily range): BP systolic 116–151; BP diastolic 74–98; PULSE 78–95; RESP 13–24; TEMP 35.6–36.4; O2SAT 94–97; BMI 32.5; BMI 33.0
--- NOTE | 2025-05-06 10:34 | DI.RAD.S_ITS ---
PROCEDURE: XR CHEST 1V
--- NOTE | 2025-05-06 10:34 | ED_ITS ---
HPI - SOB/Dyspnea
--- NOTE | 2025-05-06 10:34 | DI.CT.S_ITS ---
PROCEDURE: CT ANGIO CHEST PE PROTOCOL
--- NOTE | 2025-05-06 10:34 | ED.SOB ---
HPI - SOB/Dyspnea General Chief Complaint: Shortness of Breath/Dyspnea Stated Complaint: SOB sent from PCPs nurse x 2 days Time Seen by Provider: 05/06/25 10:33 Source: patient Mode of arrival: Ambulatory Limitations: no limitations History of Present Illness HPI Narrative: 74-year-old history of hypertension, dyslipidemia recently flew back from [facility] 6 days ago presents with shortness breath, dyspnea on exertion, fatigue, and weakness, despite taking all his medications including Lasix. He denies fever, chills, body aches, chest pain, abdominal pain, diaphoresis, nausea, vomiting, diarrhea. Other than what is stated 14 point review system is negative. Related Data Home Medications ?Medication ?Instructions ?Recorded ?Confirmed Vitamin B3 1 tab PO DAILY 07/25/22 04/21/25 Previous Rx's ?Medication ?Instructions ?Recorded meloxicam 7.5 mg tablet See Rx Instructions PO DAILY PRN 01/12/24 neck pain #60 tabs levothyroxine 50 mcg tablet 50 mcg PO DAILY #90 tabs 07/06/24 losartan 25 mg tablet 25 mg PO DAILY #90 tabs 07/26/24 atorvastatin 20 mg tablet (Lipitor) 20 mg PO DAILY #90 tabs 08/11/24 furosemide 40 mg tablet 40 mg PO DAILY #90 tabs 08/11/24 allopurinol 300 mg tablet 300 mg PO DAILY Gout #90 tabs 09/17/24 potassium chloride 10 mEq 10 meq PO DAILY #90 caps 04/13/25 capsule,extended release lorazepam 0.5 mg tablet 0.5 mg PO DAILY anxiety #20 tabs 05/04/25 Allergies Allergy/AdvReac Type Severity Reaction Status Date / Time fluvastatin (From Lescol) Allergy Severe Hives Verified 05/06/25 10:30 lisinopril AdvReac Intermediate Cough Verified 05/06/25 10:30 Review of Systems Review of Systems ROS Unobtainable: All systems reviewed & are unremarkable except as noted in HPI and below Patient History Medical History (Updated 05/06/25 @ 14:10 by Willard Peters, ) Upper extremity somatic dysfunction Segmental and somatic dysfunction of rib cage Body posture problem Sacral region somatic dysfunction Pelvic somatic dysfunction Thoracic region somatic dysfunction Cervical somatic dysfunction Cranial somatic dysfunction Acute neck pain Chronic neck pain Macrocytosis associated with alcohol Neck stiffness Venous (peripheral) insufficiency Tendonitis, Achilles, left DJD (degenerative joint disease), cervical Overweight History of Guillain-[place] syndrome Polyneuropathy, unspecified Tinea unguium History of colonic polyps Esophageal stricture History of malignant neoplasm of lingual tonsil Erectile dysfunction Generalized anxiety disorder Gout Impaired fasting glucose Mixed hyperlipidemia Essential hypertension Social History details: , 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 Well-developed patient, in mild distress. HEAD: Atraumatic. Normocephalic. EYES: Pupils equal round and reactive. Extraocular motions intact. No scleral icterus. No injection or drainage. ENT: Nose without bleeding, purulent drainage. Throat without erythema, tonsillar hypertrophy or exudate. Airway patent. NECK: Trachea midline. Non tender CARDIOVASCULAR: Regular rate and rhythm without murmurs, gallops, or rubs. RESPIRATORY: Clear to auscultation. Breath sounds equal bilaterally. No wheezes, rales, or rhonchi. GASTROINTESTINAL: Abdomen soft, non-tender, nondistended. EXTREMITIES: +1pitting edema b/l l/e BACK: Nontender without deformity or crepitance. No flank tenderness. NEURO: AOx3. SKIN: No rash or erythema of visible areas Initial Vital Signs Initial Vital Signs: Vital Signs Temperature 97.4 F L 05/06/25 10:30 Pulse Rate 91 H 05/06/25 10:30 Respiratory Rate 16 05/06/25 10:30 Blood Pressure 130/86 05/06/25 10:30 Pulse Oximetry 96 05/06/25 10:30 Oxygen Delivery Method Room Air 05/06/25 10:30 Course Vital Signs Vital signs: Vital Signs - 8 hr 05/06/25 10:30 Temperature 97.4 F L Pulse Rate 91 H Respiratory Rate 16 Blood Pressure 130/86 Pulse Oximetry 96 Oxygen Delivery Method Room Air MDM - SOB/Dyspnea Imaging Data Chest x-ray: Radiologist's Impression: [address] [address] XRay Report Signed Patient: Reji Givens MR#: [id number] : 1950 Acct:[id number] Age/Sex: 74 / M Date of Service: 05/06/25 Loc: ED Accession Number: [id number] Procedure: XR chest 1V Ordering Provider: Willard Peters D.O. PROCEDURE: XR CHEST 1V INDICATIONS: Chest Pain TECHNIQUE: One view of the chest was acquired. COMPARISON: [facility], XR CHEST 2V, 07/28/2023, 8:57. FINDINGS: Surgical changes and devices: None. Lungs and pleura: Lungs are clear. No pleural effusions or pneumothorax. Mediastinum: Mediastinal contours appear normal. Heart size is enlarged. Bones and chest wall: No suspicious bony lesions. Overlying soft tissues appear unremarkable. IMPRESSION: No acute pulmonary process. CT scan - chest: Radiologist's Impression: Patient: Reji Givens MR#: [id number] : 1950 Acct:[id number] Age/Sex: 74 / M Date of Service: 05/06/25 Loc: ED Accession Number: [id number] Procedure: CT angio chest PE protocol Ordering Provider: Willard Peters D.O. PROCEDURE: CT ANGIO CHEST PE PROTOCOL INDICATIONS: SOB,recent travel TECHNIQUE: After the administration of intravenous contrast, 2 mm thick sections acquired from the pulmonary apices to the posterior costophrenic angles. 3-dimensional maximum intensity projection (MIP) coronal and sagittal reformats were then acquired through the thorax. For radiation dose reduction, the following was used: automated exposure control, adjustment of mA and/or kV according to patient size. COMPARISON: [facility], XR CHEST 1V, 05/06/2025, 10:33. FINDINGS: Image quality: Diagnostic. Pulmonary arteries: Pulmonary arteries are normal in size, and demonstrate no intraluminal filling defects to suggest central pulmonary embolism. Lower Neck: No enlarged lymph nodes. Thyroid: No thyroid nodules which require sonographic follow up, per consensus guidelines. Axillae: No enlarged lymph nodes. Chest Wall: Unremarkable. Bones: Unremarkable. Lungs and Pleura: Minimal to mild bilateral effusions, right greater than left. Heart: Heart size is enlarged. No pericardial effusion. Thoracic Vessels: No aortic aneurysm. Mediastinum and Alicia: Borderline enlarged mediastinal lymph nodes. Esophagus: No wall thickening. No hiatal hernia. Upper Abdomen: Simple left renal cysts. Contrast versus stones in the gallbladder without wall thickening. IMPRESSION: No pulmonary embolus. Minimal to mild bilateral effusions. Dictated by: Inés Quijano M.D. on 05/06/2025 at 11:10 ECG Data Interpretation: NSR HR 83 VT 144 QRS [address]-t wave change Unchanged from 07/28/23 MDM Narrative Medical decision making narrative: All lab work, vital signs, nurse triage note, medication list, previous ER visits, and all imaging studies reviewed. WBC 4.5 hemoglobin 15.5 platelet 162 INR 1.1 sodium 139 has not 4 point chloride 104 CO2 24 BUN 29 creatinine 1.21 glucose 106 magnesium 2.0 T bili 3.9 BNP 2870 troponin 0.175 lipase 126 chest x-ray showed no acute process. 2nd trop 0.119. Pt received asa and heparin gtt. Case d/w Dr.Bhola marte who agrees this patient most likely has acute on chronic HF and to get echo tommorow and admit to hospitalist service. Case d/w who has graciously accepted pt for inpatient admission. Discharge Plan Departure Patient Disposition: Admitted As Inpatient Clinical Impression: Acute non-ST elevation myocardial infarction (NSTEMI) Admit Date/Time: 05/06/25 14:08 Admit Provider: Hira Fernandez V
--- NOTE | 2025-05-06 10:50 | EKG_ITS ---
[facility]
[2025-05-06 10:59] LABS: Add Manual Diff / Slide Review NO; Hematocrit 45.4 % (41-53); Hemoglobin 15.5 g/dL (13.5-17.5); Lymphocytes Absolute Auto 300 /uL (1100-4500); Mean Corpuscular HGB Conc 34.1 % (30-36); Mean Corpuscular Hemoglobin 38.4 PG (26-34); Mean Corpuscular Volume 112.4 fL (80-100); Platelet Count 162 X10^3/uL (150-400)
[2025-05-06 11:08] LABS: INR 1.1 (0.9-1.3); Prothrombin Time 12.5 SECONDS (9.4-12.5)
[2025-05-06 11:11] LABS: PTT Partial Thromboplastin Tim 33 SECONDS (25.1-36.5)
[2025-05-06 11:17] LABS: Alanine Aminotransferase 34 IU/L (<50); Albumin 4.8 g/dL (3.5-5.0); Albumin Globulin Ratio 1.8 (1.0-2.8); Alkaline Phosphatase 119 U/L (38-126); Blood Urea Nitrogen 29 mg/dL (9-20); Calcium 9.9 mg/dL (8.4-10.2); Carbon Dioxide 24 mmol/L (22-32); Chloride 104 mmol/L (98-107); Creatine Kinase 106 U/L (55-170); Estimated Glomerular Filt Rate > 60 mL/min (>60); Globulin 2.7 g/dL (1.7-4.1); Glucose 106 mg/dL (70-99); HEMOLYSIS 20 (0-50); Lipase 126 U/L (23-300); Magnesium 2.0 mg/dL (1.6-2.3); Potassium 4.4 mmol/L (3.4-5.1); Sodium 139 mmol/L (137-145); Total Protein 7.5 g/dL (6.3-8.2)
[2025-05-06] MEDS: ASPIRIN 81 MG CHEW TAB 324 MG PO (11:21)
[2025-05-06 11:28] LABS: NT-proBNP (BNP-Adult 18+) 2870 pg/mL (<450)
[2025-05-06 11:39] LABS: Troponin I 0.175 ng/mL (0.01-0.034)
[2025-05-06 11:43] LABS: Macrocytosis 2+
[2025-05-06 11:44] LABS: Microcytosis 1+
[2025-05-06 13:13] LABS: Troponin I 0.119 ng/mL (0.01-0.034)
--- NOTE | 2025-05-06 13:54 | EKG_ITS ---
[facility]
[2025-05-06] MEDS: HEPARIN DRIP 25,000 UNIT/500 ML IV.SOLN 26.889 UNIT IV (13:59)
[2025-05-06] MEDS: HEPARIN 5,000 UNIT/ML VIAL 5000 UNIT IV (13:59)
--- NOTE | 2025-05-06 14:51 | P.CONS_ITS ---
History of Present Illness
--- NOTE | 2025-05-06 14:51 | PM.CN ---
History of Present Illness Consult details Date Patient Seen: 05/06/25 Time Patient Seen: 15:06 Chief complaint: SOB sent from PCPs nurse x 2 days Reason for consult: Elevated Troponin Requesting provider: Hira Fernandez Narrative: 74-year-old male history of hypertension, hyperlipidemia, gout, hypothyroidism, chronic alcohol use, history of remote smoking, lingular carcinoma status post neck dissection, chronic leg swelling admitted to the hospital with complaints of shortness of breath. Patient states that he was recently visiting [place] and had restaurant food during that time. After returning to [place] he started experiencing shortness of breath,fatigue and worsening of leg edema. He denied any resting or exertional chest discomfort. Meds Home Medications and Allergies Home Medications ?Medication ?Instructions ?Recorded ?Confirmed ?Type Vitamin B3 1 tab PO DAILY 07/25/22 04/21/25 History meloxicam 7.5 mg tablet See Rx Instructions PO DAILY PRN 01/12/24 04/21/25 Rx neck pain #60 tabs levothyroxine 50 mcg tablet 50 mcg PO DAILY #90 tabs 07/06/24 04/21/25 Rx losartan 25 mg tablet 25 mg PO DAILY #90 tabs 07/26/24 04/21/25 Rx atorvastatin 20 mg tablet (Lipitor) 20 mg PO DAILY #90 tabs 08/11/24 04/21/25 Rx furosemide 40 mg tablet 40 mg PO DAILY #90 tabs 08/11/24 04/21/25 Rx allopurinol 300 mg tablet 300 mg PO DAILY Gout #90 tabs 09/17/24 04/21/25 Rx potassium chloride 10 mEq 10 meq PO DAILY #90 caps 04/13/25 04/21/25 Rx capsule,extended release lorazepam 0.5 mg tablet 0.5 mg PO DAILY anxiety #20 tabs 05/04/25 Rx Allergies Allergy/AdvReac Type Severity Reaction Status Date / Time fluvastatin (From Lescol) Allergy Severe Hives Verified 05/06/25 10:30 lisinopril AdvReac Intermediate Cough Verified 05/06/25 10:30 Review of Systems Review of Systems ROS: Yes All systems reviewed with the patient and are negative except as otherwise documented Cardiovascular Cardiovascular: Reports claudication and Reports leg edema Respiratory Comments: Shortness of breath Exam Vital Signs (past 8 hours): - 05/06/25 10:30 05/06/25 10:37 05/06/25 10:37 Temperature 97.4 F L Pulse Rate 91 H 95 H Respiratory Rate 16 Blood Pressure 130/86 124/84 Pulse Oximetry 96 96 Oxygen Delivery Method Room Air 05/06/25 11:14 05/06/25 11:14 05/06/25 11:30 Temperature Pulse Rate 81 Respiratory Rate 24 Blood Pressure 116/74 120/77 Pulse Oximetry 96 Oxygen Delivery Method 05/06/25 11:30 05/06/25 12:30 05/06/25 13:00 Temperature Pulse Rate 80 78 80 Respiratory Rate 13 24 19 Blood Pressure Pulse Oximetry 97 95 97 Oxygen Delivery Method Room Air 05/06/25 13:30 05/06/25 14:01 05/06/25 14:02 Temperature Pulse Rate 80 94 H Respiratory Rate 17 Blood Pressure 151/98 H Pulse Oximetry 97 95 Oxygen Delivery Method 05/06/25 14:02 Temperature Pulse Rate 86 Respiratory Rate 24 Blood Pressure Pulse Oximetry 97 Oxygen Delivery Method Room Air Oxygen Delivery Method Room Air Const General: cooperative, healthy appearing, comfortable and well developed HENWA Head: normal to inspection Face and sinus: normal facial exam Eyes General: appearance normal, both eyes and all related structures EOM: EOM intact bilaterally Neck Neck: normal visual inspection Chest Chest: normal inspection of the chest Resp Effort & Inspection: normal respiratory effort and able to speak in complete sentences Auscultation: clear to auscultation bilaterally Cardio Rate: regular rate Rhythm: regular rhythm Heart Sounds: S1 normal and S2 normal GI Inspection: normal to inspection Auscultation: normal bowel sounds Back/Spine/Pelvis Back: normal to inspection Skin General: no rashes or lesions noted Neuro General: patient alert, patient awake and patient oriented x3 Extrem General: normal to inspection and capillary refill normal Other: Bluish discoloration of the both legs. 2+ swelling left leg, 1-2+ swelling in the left leg. Objective ECG Impression: Normal sinus rhythm with STT change in the inferior and lateral leads. When compared to previous ekg there are not interval changes. Labs 05/06/25 10:51 05/06/25 10:51 Labs: Laboratory Results - last 24 hr 05/06/25 05/06/25 10:51 12:45 WBC 4.5 RBC 4.04 L Hgb 15.5 Hct 45.4 MCV 112.4 H MCH 38.4 H MCHC 34.1 RDW 17.0 H Plt Count 162 Neut % (Auto) 58.6 Lymph % (Auto) 7.8 L [place] % (Auto) 26.3 H Eos % (Auto) 6.3 H Baso % (Auto) 1.0 Neut # (Auto) 2600 Lymph # (Auto) 300 L [place] # (Auto) 1200 H Eos # (Auto) 300 Baso # (Auto) 0 RBC Morphology See below Microcytosis 1+ H Macrocytosis 2+ H PT 12.5 INR 1.1 APTT 33 Sodium 139 Potassium 4.4 Chloride 104 Carbon Dioxide 24 BUN 29 H Creatinine 1.21 Estimated GFR > 60 BUN/Creatinine Ratio 24.0 H Glucose 106 H Calcium 9.9 Magnesium 2.0 Total Bilirubin 3.9 H AST 49 ALT 34 Alkaline Phosphatase 119 Total Creatine Kinase 106 Troponin I 0.175 H* 0.119 H NT-Pro-B Natriuret Pep 2870 H Total Protein 7.5 Albumin 4.8 Globulin 2.7 Albumin/Globulin Ratio 1.8 Lipase 126 PFSH Medical History Upper extremity somatic dysfunction Segmental and somatic dysfunction of rib cage Body posture problem Sacral region somatic dysfunction Pelvic somatic dysfunction Thoracic region somatic dysfunction Cervical somatic dysfunction Cranial somatic dysfunction Acute neck pain Chronic neck pain Macrocytosis associated with alcohol Neck stiffness Venous (peripheral) insufficiency Tendonitis, Achilles, left DJD (degenerative joint disease), cervical Overweight History of Guillain-[place] syndrome Polyneuropathy, unspecified Tinea unguium History of colonic polyps Esophageal stricture History of malignant neoplasm of lingual tonsil Erectile dysfunction Generalized anxiety disorder Gout Impaired fasting glucose Mixed hyperlipidemia Essential hypertension Comment: Head and Neck cancer s/p radical neck dissection Social History details: , 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 Safety seatbelt use: always Tobacco & Substance Use Smoking Status: Unknown if ever smoked alcohol intake: current Assessment & Plan Assessment and plan (1) Shortness of breath: Status: Acute (2) Acute non-ST elevation myocardial infarction (NSTEMI): Status: Acute (3) Mixed hyperlipidemia: Status: Acute (4) Essential hypertension: Status: Acute Plan Aspirin 81 mg daily Heparin can be stopped if 3rd set of troponin is trending down Echocardiogram while patient is in hospital Ischemia workup as an outpatient, If echo demonstrates diastolic dysfunction: Consider using aldosterone 12.5 mg daily or Jardiance 10 mg daily please review the side effects of these medications with the patient before starting.. Assessment & Plan narrative: Shortness of breath: This is a 74-year-old male known history of hypertension, hyperlipidemia, chronic alcohol use, intermittent leg swelling recently went to [place] and 8 restaurant food. After returning from the trip he started experiencing shortness of breath both at rest and with exertion with worsening of swelling and fatigue. He was advised to come to the emergency room for evaluation. Initial EKG demonstrated normal sinus rhythm with ST-T changes involving the lateral and inferior leads. There was an decrease in troponin levels. First set was 0.175 followed by 0.119. NT proBNP was 28 70. Differential diagnosis includes non ST elevation myocardial infarction, acute on chronic diastolic heart failure. Patient has several risk factors for diastolic heart failure include age, hypertension, chronic alcohol use. I do not have the most recent echocardiogram on him. Since his troponin levels are trending down I feel comfortable recommending the following. Aspirin 81 mg daily Echocardiogram has an inpatient. Patient needs additional ischemia workup. He had a stress test done in July of 2023 which was low risk and negative for ischemia or infarction. Patient may benefit from aldosterone antagonist spironolactone 12.5 mg daily or Jardiance 10 mg daily Heparin drip can be stopped if the 3rd set of troponin is trending down. Resume all home medications. Hypertension: Patient reports adequate blood pressure control with current regimen of medications. Hyperlipidemia: Patient is on long-term statins atorvastatin 20 mg daily. Chronic leg edema: Patient reports bulging varicose veins in both lower extremities. I advised him to follow up in my office to meet with Dr. Eduard Riley who has a vein specialist in our practice. We can certainly offer him relief after he undergoes diagnostic evaluation. Time-Based Coding :: [TOTAL MINUTES] spent with patient and on the chart (including review of chart, obtaining history, exam, reviewing outside data, placing orders, documenting exam and treatment plan, and counseling patient) on [DATE].
[2025-05-06] MEDS: FUROSEMIDE 40 MG/4 ML VIAL IV ×2 (16:50→23:52)
--- NOTE | 2025-05-06 17:22 | P.HP_ITS ---
History of Present Illness
--- NOTE | 2025-05-06 17:22 | PM.HP.IH.1 ---
History of Present Illness History of Present Illness Date Patient Seen: 05/06/25 Time Patient Seen: 12:50 Chief complaint: SOB sent from PCPs nurse x 2 days Narrative: 74-year-old man under the primary care Dr. Hira Fernandez presents with shortness of breath, nausea and chest discomfort overnight. He reports several months of shortness of breath and lower extremity edema. He had a similar presentation last year with evaluation including nuclear medicine sestamibi heart scan showing no evidence of ischemia, and was treated with albuterol at that time. He states he is never found that effective. He has chronic lower extremity edema and states this has been stable lately, though admits he did gain 10 lb on a recent trip to [place]. He states that he enjoys salty foods. Last night he had significant shortness of breath while lying flat though generally has not had orthopnea symptoms in the past. In the emergency department he was noted to have an elevated troponin of 0.175 with an NT proBNP of 2870. Subsequent follow-up troponin was decreased at 0.119. Cardiology was consulted and recommended medical management of volume overload and type 2 non STEMI. Case is reviewed with Dr. Mulligan of Cardiology on admission. 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 Impaired fasting glucose Macrocytosis associated with alcohol Mixed hyperlipidemia Neck stiffness Overweight Pelvic somatic dysfunction Polyneuropathy, unspecified Sacral region somatic dysfunction Segmental and somatic dysfunction of rib cage Tendonitis, Achilles, left Thoracic region somatic dysfunction Tinea unguium Upper extremity somatic dysfunction Venous (peripheral) insufficiency Social History details: , 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 seatbelt use: always Smoking Status: Former smoker alcohol intake: current Meds Home Medications and Allergies Home Medications ?Medication ?Instructions ?Recorded ?Confirmed ?Type Vitamin B3 1 tab PO DAILY 07/25/22 05/06/25 History meloxicam 7.5 mg tablet See Rx Instructions PO DAILY PRN 01/12/24 05/06/25 Rx neck pain #60 tabs levothyroxine 50 mcg tablet 50 mcg PO DAILY #90 tabs 07/06/24 05/06/25 Rx losartan 25 mg tablet 25 mg PO DAILY #90 tabs 07/26/24 05/06/25 Rx atorvastatin 20 mg tablet (Lipitor) 20 mg PO DAILY #90 tabs 08/11/24 05/06/25 Rx furosemide 40 mg tablet 40 mg PO DAILY #90 tabs 08/11/24 05/06/25 Rx allopurinol 300 mg tablet 300 mg PO DAILY Gout #90 tabs 09/17/24 05/06/25 Rx potassium chloride 10 mEq 10 meq PO DAILY #90 caps 04/13/25 05/06/25 Rx capsule,extended release lorazepam 0.5 mg tablet 0.5 mg PO DAILY anxiety #20 tabs 05/04/25 05/06/25 Rx Allergies Allergy/AdvReac Type Severity Reaction Status Date / Time fluvastatin (From [place]col) Allergy Severe Hives Verified 05/06/25 10:30 lisinopril AdvReac Intermediate Cough Verified 05/06/25 10:30 Review of Systems Review of Systems ROS: Yes All systems reviewed with the patient and are negative except as otherwise documented Exam Vital Signs (past 8 hours): - 05/06/25 10:30 05/06/25 10:37 05/06/25 10:37 Temperature 97.4 F L Pulse Rate 91 H 95 H Respiratory Rate 16 Blood Pressure 130/86 124/84 Pulse Oximetry 96 96 Oxygen Delivery Method Room Air 05/06/25 11:14 05/06/25 11:14 05/06/25 11:30 Temperature Pulse Rate 81 Respiratory Rate 24 Blood Pressure 116/74 120/77 Pulse Oximetry 96 Oxygen Delivery Method 05/06/25 11:30 05/06/25 12:30 05/06/25 13:00 Temperature Pulse Rate 80 78 80 Respiratory Rate 13 24 19 Blood Pressure Pulse Oximetry 97 95 97 Oxygen Delivery Method Room Air 05/06/25 13:30 05/06/25 14:01 05/06/25 14:02 Temperature Pulse Rate 80 94 H Respiratory Rate 17 Blood Pressure 151/98 H Pulse Oximetry 97 95 Oxygen Delivery Method 05/06/25 14:02 05/06/25 14:30 05/06/25 14:30 Temperature Pulse Rate 86 80 Respiratory Rate 24 24 Blood Pressure 137/95 H Pulse Oximetry 97 96 Oxygen Delivery Method Room Air 05/06/25 15:00 05/06/25 15:00 05/06/25 15:30 Temperature Pulse Rate 79 78 Respiratory Rate 22 24 Blood Pressure 129/87 Pulse Oximetry 96 94 Oxygen Delivery Method 05/06/25 15:30 05/06/25 16:00 05/06/25 16:00 Temperature Pulse Rate 78 Respiratory Rate 20 Blood Pressure 121/85 129/93 H Pulse Oximetry 96 Oxygen Delivery Method Oxygen Delivery Method Room Air Narrative Exam Narrative: GENERAL: This is a well-nourished, well-developed patient, in no apparent distress. EYES: Pupils equal round and reactive. Extraocular motions intact. No scleral icterus. No injection or drainage. ENT: Mucous membranes pink and moist. NECK: Trachea midline. No JVD, bruits or lymphadenopathy. Supple, nontender, no meningeal signs. CARDIOVASCULAR: Regular rate and rhythm without murmurs, gallops, or rubs. RESPIRATORY: Clear to auscultation. GASTROINTESTINAL: Abdomen soft, non-tender, nondistended. EXTREMITIES: 2+ edema L>R. NEUROLOGIC: Alert, oriented, speech fluent, full upper and lower motor strength, no focal deficits evident. DERMATOLOGIC: No rashes or skin lesions. Objective Labs 05/06/25 10:51 05/06/25 10:51 Labs: Laboratory Results - last 24 hr 05/06/25 05/06/25 10:51 12:45 WBC 4.5 RBC 4.04 L Hgb 15.5 Hct 45.4 MCV 112.4 H MCH 38.4 H MCHC 34.1 RDW 17.0 H Plt Count 162 Neut % (Auto) 58.6 Lymph % (Auto) 7.8 L [place] % (Auto) 26.3 H Eos % (Auto) 6.3 H Baso % (Auto) 1.0 Neut # (Auto) 2600 Lymph # (Auto) 300 L [place] # (Auto) 1200 H Eos # (Auto) 300 Baso # (Auto) 0 RBC Morphology See below Microcytosis 1+ H Macrocytosis 2+ H PT 12.5 INR 1.1 APTT 33 Sodium 139 Potassium 4.4 Chloride 104 Carbon Dioxide 24 BUN 29 H Creatinine 1.21 Estimated GFR > 60 BUN/Creatinine Ratio 24.0 H Glucose 106 H Calcium 9.9 Magnesium 2.0 Total Bilirubin 3.9 H AST 49 ALT 34 Alkaline Phosphatase 119 Total Creatine Kinase 106 Troponin I 0.175 H* 0.119 H NT-Pro-B Natriuret Pep 2870 H Total Protein 7.5 Albumin 4.8 Globulin 2.7 Albumin/Globulin Ratio 1.8 Lipase 126 Assessment & Plan Assessment & Plan narrative: 1. Acute non STEMI, likely due to acute on chronic diastolic congestive heart failure. 2. Acute on chronic diastolic congestive heart failure. 3. Hypertension. 4. Hyperlipidemia. 5. Hypothyroidism. 6. Impaired fasting glucose. 7. Gout. 8. Osteoarthritis. Plan: -admit to inpatient -IV heparin infusion -serial cardiac enzymes -furosemide 40 mg IV every 8 hours -echocardiography -continue routine home medications DVT prophylaxis: On heparin infusion Code status: Full code. His is his surrogate decision maker. Quality VTE Deep Vein Thrombosis/Pulmonary Embolism Present on Admission: No MIPS - Admit I confirm the patient?s Advance Care Plan is present, Code status is documented, Surrogate decision maker is in patient?s record [If Yes, STOP here]: Yes [facility] - Meds 'Current medications' to include all prescriptions, [id number] products, herbals, cannabis/cannabidiol products, and vitamin/mineral/dietary (nutritional) supplements. I have utilized all available resources to obtain, update, or review the patient?s current medications. [If Yes, STOP here]: Yes [employer] Document charge(s): No Charge Codes Initial inpatient/observation care: [id number]
[2025-05-06 17:55] LABS: PTT Partial Thromboplastin Tim 109 SECONDS (25.1-36.5)
[2025-05-07 00:02] LABS: PTT Partial Thromboplastin Tim 49 SECONDS (25.1-36.5)
[2025-05-07 04:00] VITALS: BP 121/84; PULSE 63; RESP 16; TEMP 36.4; O2SAT 95
[2025-05-07] MEDS: LEVOTHYROXINE 50 MCG TABLET PO (05:32)
[2025-05-07 06:04] LABS: Add Manual Diff / Slide Review NO; Hematocrit 43.7 % (41-53); Hemoglobin 15.0 g/dL (13.5-17.5); Lymphocytes Absolute Auto 400 /uL (1100-4500); Mean Corpuscular HGB Conc 34.3 % (30-36); Mean Corpuscular Hemoglobin 38.2 PG (26-34); Mean Corpuscular Volume 111.5 fL (80-100); Platelet Count 150 X10^3/uL (150-400)
[2025-05-07 06:08] LABS: PTT Partial Thromboplastin Tim 51 SECONDS (25.1-36.5)
[2025-05-07 06:09] LABS: Blood Urea Nitrogen 28 mg/dL (9-20); Calcium 9.5 mg/dL (8.4-10.2); Carbon Dioxide 29 mmol/L (22-32); Chloride 101 mmol/L (98-107); Estimated Glomerular Filt Rate > 60 mL/min (>60); Glucose 109 mg/dL (70-99); HEMOLYSIS < 15 (0-50); Magnesium 1.9 mg/dL (1.6-2.3); Potassium 3.9 mmol/L (3.4-5.1); Sodium 137 mmol/L (137-145)
[2025-05-07 06:21] LABS: Anisocytosis 2+; Macrocytosis 2+
[2025-05-07 06:25] LABS: Troponin I 0.314 ng/mL (0.01-0.034)
[2025-05-07 08:00] VITALS: BP 126/84; PULSE 81; RESP 25; TEMP 36.4; O2SAT 98
[2025-05-07 08:25] VITALS: BP 120/74; PULSE 115; RESP 24; TEMP 37.4; O2SAT 95
[2025-05-07] MEDS: POTASSIUM CHLORIDE 10 MEQ TAB PO (10:35)
[2025-05-07] MEDS: LOSARTAN 25 MG TABLET PO (10:35)
[2025-05-07] MEDS: FUROSEMIDE 40 MG/4 ML VIAL IV ×2 (10:36→17:32)
[2025-05-07 11:59] LABS: Hematocrit 42.9 % (41-53); Hemoglobin 14.6 g/dL (13.5-17.5); Platelet Count 161 X10^3/uL (150-400)
[2025-05-07 12:06] VITALS: BP 127/85; PULSE 80; RESP 28; TEMP 36.3; O2SAT 98
[2025-05-07 12:11] LABS: PTT Partial Thromboplastin Tim 48 SECONDS (25.1-36.5)
--- NOTE | 2025-05-07 12:41 | PM.PN.IH.1 ---
Subjective Subjective Date Patient Seen: 05/07/25 Time Patient Seen: 08:02 Interval history: Chief complaint: SOB sent from PCPs nurse x 2 days Narrative: 74-year-old man under the primary care Dr. Hira Fernandez presents with shortness of breath, nausea and chest discomfort overnight. He reports several months of shortness of breath and lower extremity edema. He had a similar presentation last year with evaluation including nuclear medicine sestamibi heart scan showing no evidence of ischemia, and was treated with albuterol at that time. He states he is never found that effective. He has chronic lower extremity edema and states this has been stable lately, though admits he did gain 10 lb on a recent trip to [place]. He states that he enjoys salty foods. Last night he had significant shortness of breath while lying flat though generally has not had orthopnea symptoms in the past. In the emergency department he was noted to have an elevated troponin of 0.175 with an NT proBNP of 2870. Subsequent follow-up troponin was decreased at 0.119. Cardiology was consulted and recommended medical management of volume overload and type 2 non STEMI. Case is reviewed with Dr. Mulligan of Cardiology on admission. Interim history: 05/07: The patient denies chest pain or shortness of breath at rest, stating he feels improved dyspnea with mild exertion, and improved lower extremity edema with significant diuresis overnight. Exam Vital Signs (past 8 hours): - 05/07/25 08:00 05/07/25 12:06 Temperature 97.6 F 97.4 F L Pulse Rate 81 80 Respiratory Rate 25 H 28 H Blood Pressure 126/84 127/85 Pulse Oximetry 98 98 Oxygen Flow Rate 0 0 Oxygen Delivery Method Room Air Oxygen Flow Rate 0 Narrative Exam Narrative: GENERAL: This is a well-nourished, well-developed patient, in no apparent distress. EYES: Pupils equal round and reactive. Extraocular motions intact. No scleral icterus. No injection or drainage. ENT: Mucous membranes pink and moist. NECK: Trachea midline. No JVD, bruits or lymphadenopathy. Supple, nontender, no meningeal signs. CARDIOVASCULAR: Regular rate and rhythm without murmurs, gallops, or rubs. RESPIRATORY: Clear to auscultation. GASTROINTESTINAL: Abdomen soft, non-tender, nondistended. EXTREMITIES: 1-2+ edema L>R. NEUROLOGIC: Alert, oriented, speech fluent, full upper and lower motor strength, no focal deficits evident. DERMATOLOGIC: No rashes or skin lesions. Objective Imaging Echo: Radiologist's impression: Normal sinus rhythm with frequent PVCs. Normal LV size; severe eccentric LVH. Septal hypokinesis; otherwise normal wall motion and LV systolic function. EF is 50-55%. Stage II diastolic dysfunction. Severe left atrial enlargement. Moderate right atrial enlargement. Mildly dilated right ventricle with mildly reduced RV systolic function. Mild mitral annular calcification. Aortic valve leaflets are not well-seen. They appeared to be at least mildly thickened and calcified but open well. Estimated PA systolic pressure is 53 mmHg assuming right atrial pressure of 8 mmHg. Suspect hypertrophic cardiomyopathy. Abnormal LV myocardial speckling, which could be due to unknown infiltrative disease. Chest CTA: Radiologist's impression: No pulmonary embolus. Minimal to mild bilateral effusions. Chest x-ray: Radiologist's impression: No acute pulmonary process. Labs 05/07/25 11:52 05/07/25 05:30 Labs: Laboratory Results - last 24 hr 05/06/25 05/06/25 05/06/25 12:45 17:17 23:40 WBC RBC Hgb Hct MCV MCH MCHC RDW Plt Count Neut % (Auto) Lymph % (Auto) [place] % (Auto) Eos % (Auto) Baso % (Auto) Neut # (Auto) Lymph # (Auto) [place] # (Auto) Eos # (Auto) Baso # (Auto) RBC Morphology Anisocytosis Macrocytosis APTT 109 H* D 49 H D Sodium Potassium Chloride Carbon Dioxide BUN Creatinine Estimated GFR BUN/Creatinine Ratio Glucose Calcium Magnesium Troponin I 0.119 H 05/07/25 05/07/25 05:30 11:52 WBC 3.9 L RBC 3.92 L Hgb 15.0 14.6 Hct 43.7 42.9 MCV 111.5 H MCH 38.2 H MCHC 34.3 RDW 16.6 H Plt Count 150 161 Neut % (Auto) 50.0 Lymph % (Auto) 10.0 L [place] % (Auto) 29.3 H Eos % (Auto) 9.8 H Baso % (Auto) 0.9 Neut # (Auto) 1900 Lymph # (Auto) 400 L [place] # (Auto) 1100 H Eos # (Auto) 400 Baso # (Auto) 0 RBC Morphology See below Anisocytosis 2+ H Macrocytosis 2+ H APTT 51 H 48 H Sodium 137 Potassium 3.9 Chloride 101 Carbon Dioxide 29 BUN 28 H Creatinine 1.12 Estimated GFR > 60 BUN/Creatinine Ratio 25.0 H Glucose 109 H Calcium 9.5 Magnesium 1.9 Troponin I 0.314 H* PFSH Medical History Acute neck pain Body posture problem Cervical somatic dysfunction Chronic neck pain Cranial somatic dysfunction DJD (degenerative joint disease), cervical Erectile dysfunction Esophageal stricture Essential hypertension Generalized anxiety disorder Gout History of colonic polyps 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 Acute non STEMI, likely due to acute on chronic diastolic congestive heart failure. 2. Acute on chronic diastolic congestive heart failure. 3. LVH, possible hypertrophic cardiomyopathy, rule out infiltrative cardiomyopathy. 4. Hypertension. 5. Hyperlipidemia. 6. Hypothyroidism. 7. Impaired fasting glucose. 8. Gout. 9. Osteoarthritis. Plan: -admit to inpatient -IV heparin infusion -serial cardiac enzymes -furosemide 40 mg IV every 8 hours -SPEP, consider cardiac MRI to rule out ATTR amyloidosis after discharge with outpatient cardiology follow-up -continue routine home medications DVT prophylaxis: On heparin infusion Code status: Full code. His is his surrogate decision maker. 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
[2025-05-07 13:00] VITALS: BP 105/52; PULSE 101; RESP 22; TEMP 37.7; O2SAT 96
--- NOTE | 2025-05-07 14:37 | CM.DANOTE ---
Initial DCP Assessment Note. Review EMR and PT Interview. Met with patient at bedside to discuss discharge needs.PT is alert x 4 sitting up in bed. No acute distress. Patient lives independent with spouse. Payor:??[facility] PCP: Summary & Plan:?74 y/o male arrived to ED via POV c/o SOB, fatigue, weakness. Admitted INPT. Dx. NSTEMI. Plan: Cardiology consult, serial Troponin's, Echo, discharge to home when improved. Discharge Planning/Care Management CM Discharge Assessment Start: 05/06/25 14:18 Freq: Status: Active Protocol: Document 05/07/25 14:35 (Rec: 05/07/25 14:37 [email or web address]) Discharge Planning Assessment Assigned Discharge Lin Epperson RN CM Water Filtration Technician Provider Dr. Fernandez Insurance Medicare Advance Directives? Yes Advance Directives No on File History Provided By Patient,Medical Record Prior Living House Arrangements Household Members spouse Type of Drives own vehicle transporation used prior to admit Comment Car in hospital parking lot Independent with ADL Yes 's Is patient alert and Yes oriented? Caregiver for No Another Barriers to No Discharge Referrals Initiated None needed Review Status In Process Please Provide Date 05/07/25 Initial DC Assessment Was Performed Next Review Type Continued Stay Review
[2025-05-07 15:28] LABS: Troponin I 0.241 ng/mL (0.01-0.034)
[2025-05-07 16:22] VITALS: BP 115/86; PULSE 74; RESP 20; TEMP 36.3; O2SAT 97
[2025-05-07] MEDS: POTASSIUM CHLORIDE 10 MEQ TAB 40 MEQ PO ×2 (17:41→21:01)
[2025-05-07] MEDS: MAGNESIUM SULFATE 2 GM/50 ML PIGGYBACK IV (17:42)
[2025-05-07] MEDS: HEPARIN DRIP 25,000 UNIT/500 ML IV.SOLN 20.167 UNIT IV (19:33)
[2025-05-07] MEDS: ATORVASTATIN 20 MG TABLET PO (21:02)
[2025-05-08] MEDS: FUROSEMIDE 40 MG/4 ML VIAL IV ×2 (00:30→08:41)
[2025-05-08 00:37] VITALS: PULSE 66
[2025-05-08 03:00] VITALS: BP 94/59; PULSE 71; RESP 14; TEMP 36.3; O2SAT 96
[2025-05-08] MEDS: LEVOTHYROXINE 50 MCG TABLET PO (06:00)
[2025-05-08 06:14] LABS: Hematocrit 41.2 % (41-53); Hemoglobin 13.8 g/dL (13.5-17.5); Mean Corpuscular HGB Conc 33.6 % (30-36); Mean Corpuscular Hemoglobin 37.5 PG (26-34); Mean Corpuscular Volume 111.5 fL (80-100); Platelet Count 148 X10^3/uL (150-400)
[2025-05-08 06:19] LABS: Add Manual Diff / Slide Review YES
[2025-05-08 06:24] LABS: Blood Urea Nitrogen 28 mg/dL (9-20); Calcium 9.2 mg/dL (8.4-10.2); Carbon Dioxide 29 mmol/L (22-32); Chloride 103 mmol/L (98-107); Estimated Glomerular Filt Rate > 60 mL/min (>60); Glucose 114 mg/dL (70-99); HEMOLYSIS < 15 (0-50); Magnesium 2.2 mg/dL (1.6-2.3); Potassium 4.0 mmol/L (3.4-5.1); Sodium 139 mmol/L (137-145)
[2025-05-08 06:41] LABS: Troponin I 0.213 ng/mL (0.01-0.034)
[2025-05-08 06:43] LABS: Eosinophils Percent Manual 11.0 % (2-4); Lymphocytes Percent Manual 14.0 % (25-45); Monocytes Percent Manual 25.0 % (2-11); Neutrophils Absolute Manual 1350 /uL (3000-5900); Segmented Neutrophils Percent 50.0 % (38-70); Total Cells Counted 100
[2025-05-08 06:44] LABS: Anisocytosis 2+; Macrocytosis 2+
--- NOTE | 2025-05-08 07:07 | PC.NURSE ---
Pt is on a Heparin infusin at 9u, PTT 48. Trop 0.213. VS within normal range.Tele SR with PAC's
[2025-05-08 07:13] LABS: Hematocrit 40.6 % (41-53); Hemoglobin 13.9 g/dL (13.5-17.5); Platelet Count 144 X10^3/uL (150-400)
[2025-05-08 07:19] LABS: PTT Partial Thromboplastin Tim 50 SECONDS (25.1-36.5)
[2025-05-08 08:00] VITALS: BP 123/88; PULSE 80; RESP 24; TEMP 36.1; O2SAT 97
[2025-05-08 08:40] VITALS: BP 123/78; PULSE 88
[2025-05-08] MEDS: LOSARTAN 25 MG TABLET PO (08:40)
[2025-05-08] MEDS: POTASSIUM CHLORIDE 10 MEQ TAB 40 MEQ PO (08:41)
--- NOTE | 2025-05-08 10:53 | CM.DPNOTE ---
DCP note [place] [employer] ATTENDANT reviewed EMR per provider in morning rounds, dc today. no new CM needs per RN, no new CM needs at this time P: dc home today with OP f/u as needed. will transport self home. no new CM needs at this time. will continue to follow as needed incase any additional DCP needs should arise NICKIE Hoang
--- NOTE | 2025-05-08 11:30 | P.DS_ITS ---
History of Present Illness
--- NOTE | 2025-05-08 11:30 | PM.DS.IH.1 ---
History of Present Illness History of Present Illness Date Patient Seen: 05/08/25 Time Patient Seen: 08:15 Chief complaint: SOB sent from PCPs nurse x 2 days Narrative: 74-year-old man under the primary care Dr. Hira Fernandez presents with shortness of breath, nausea and chest discomfort overnight. He reports several months of shortness of breath and lower extremity edema. He had a similar presentation last year with evaluation including nuclear medicine sestamibi heart scan showing no evidence of ischemia, and was treated with albuterol at that time. He states he is never found that effective. He has chronic lower extremity edema and states this has been stable lately, though admits he did gain 10 lb on a recent trip to [place]. He states that he enjoys salty foods. Last night he had significant shortness of breath while lying flat though generally has not had orthopnea symptoms in the past. In the emergency department he was noted to have an elevated troponin of 0.175 with an NT proBNP of 2870. Subsequent follow-up troponin was decreased at 0.119. Cardiology was consulted and recommended medical management of volume overload and type 2 non STEMI. Case is reviewed with Dr. Mulligan of Cardiology on admission. Discharge Providers Provider Date of admission: 05/06/25 14:08 Discharge Date: 05/08/25 Primary care physician: Hira Fernandez MD Discharge provider: Hira Fernandez MD Summary Hospital Course Discharge Diagnosis: 1. Acute non STEMI, likely due to acute on chronic diastolic congestive heart failure. 2. Acute on chronic diastolic congestive heart failure. 3. LVH, possible hypertrophic cardiomyopathy, rule out infiltrative cardiomyopathy. 4. Hypertension. 5. Hyperlipidemia. 6. Hypothyroidism. 7. Impaired fasting glucose. 8. Gout. 9. Osteoarthritis. 10. Peripheral neuropathy Hospital Course: The patient was admitted to inpatient telemetry and monitored with serial cardiac enzymes, administered in IV heparin infusion, with cardiac enzymes trending downward, and the patient otherwise remaining asymptomatic without chest pain or anginal equivalent symptoms. He had mild shortness of breath that improved with IV diuresis with a net 4.5 L negative fluid balance during the hospitalization on IV furosemide 40 mg every 8 hours. Potassium and magnesium were repleted during hospitalization. He had a short run of ventricular tachycardia lasting several seconds that did not recur after electrolyte repletion. Echocardiography was notable for evidence of diastolic dysfunction with severe left ventricular hypertrophy with possible infiltrative cardiomyopathy. Serum protein electrophoresis was ordered and plans for outpatient evaluation for possible ATTR amyloidosis noting his cardiomyopathy and peripheral neuropathy symptoms, as well as a family history of congestive heart failure in his mother in her 60s. Cardiology consulted during hospitalization and outpatient follow-up is planned. The patient is feeling well and interested in discharge home. Jardiance is added as an outpatient medicine at the time of discharge but may be substituted with spironolactone if not covered by insurance. The patient acknowledged understanding, agreement and appreciation of this plan of care, and agreed to call back with any questions or concerns. Status at Discharge Cognitive/behavioral status at discharge: oriented Functional status at discharge: independent ambulation Overall status at discharge: patient is back to baseline Time Spent with Patient Time spent: Greater than 30 minutes Exam Vital Signs (past 8 hours): - 05/08/25 08:00 05/08/25 08:40 Temperature 96.9 F L Pulse Rate 80 88 Respiratory Rate 24 Blood Pressure 123/88 123/78 Pulse Oximetry 97 Oxygen Flow Rate 0 Oxygen Delivery Method Room Air Oxygen Flow Rate 0 Narrative Exam Narrative: GENERAL: This is a well-nourished, well-developed patient, in no apparent distress. EYES: Pupils equal round and reactive. Extraocular motions intact. No scleral icterus. No injection or drainage. ENT: Mucous membranes pink and moist. NECK: Trachea midline. No JVD, bruits or lymphadenopathy. Supple, nontender, no meningeal signs. CARDIOVASCULAR: Regular rate and rhythm without murmurs, gallops, or rubs. RESPIRATORY: Clear to auscultation. GASTROINTESTINAL: Abdomen soft, non-tender, nondistended. EXTREMITIES: 1-2+ edema L>R. NEUROLOGIC: Alert, oriented, speech fluent, full upper and lower motor strength, no focal deficits evident. DERMATOLOGIC: No rashes or skin lesions. Objective Imaging Echo: Radiologist's impression: Normal sinus rhythm with frequent PVCs. Normal LV size; severe eccentric LVH. Septal hypokinesis; otherwise normal wall motion and LV systolic function. EF is 50-55%. Stage II diastolic dysfunction. Severe left atrial enlargement. Moderate right atrial enlargement. Mildly dilated right ventricle with mildly reduced RV systolic function. Mild mitral annular calcification. Aortic valve leaflets are not well-seen. They appeared to be at least mildly thickened and calcified but open well. Estimated PA systolic pressure is 53 mmHg assuming right atrial pressure of 8 mmHg. Suspect hypertrophic cardiomyopathy. Abnormal LV myocardial speckling, which could be due to unknown infiltrative disease. Chest CTA: Radiologist's impression: No pulmonary embolus. Minimal to mild bilateral effusions. Chest x-ray: Radiologist's impression: No acute pulmonary process. Labs 05/08/25 06:58 05/08/25 05:30 Labs: Laboratory Results - last 24 hr 05/07/25 05/07/25 05/08/25 11:52 14:55 05:30 WBC 2.7 L RBC 3.70 L Hgb 14.6 13.8 Hct 42.9 41.2 MCV 111.5 H MCH 37.5 H MCHC 33.6 RDW 17.4 H Plt Count 161 148 L Neut % (Auto) Not Reportable Lymph % (Auto) Not Reportable Runnels % (Auto) Not Reportable Eos % (Auto) Not Reportable Baso % (Auto) Not Reportable Lymph # (Auto) Not Reportable Runnels # (Auto) Not Reportable Baso # (Auto) Not Reportable Total Counted 100 Seg Neutrophils % 50.0 Lymphocytes % (Manual) 14.0 L Monocytes % (Manual) 25.0 H Eosinophils % (Manual) 11.0 H Neutrophils # (Manual) 1350 L RBC Morphology See below Anisocytosis 2+ H Macrocytosis 2+ H APTT 48 H Sodium 139 Potassium 4.0 Chloride 103 Carbon Dioxide 29 BUN 28 H Creatinine 1.13 Estimated GFR > 60 BUN/Creatinine Ratio 24.8 H Glucose 114 H Calcium 9.2 Magnesium 2.2 Troponin I 0.241 H* 0.213 H* 05/08/25 06:58 WBC RBC Hgb 13.9 Hct 40.6 L MCV MCH MCHC RDW Plt Count 144 L Neut % (Auto) Lymph % (Auto) Runnels % (Auto) Eos % (Auto) Baso % (Auto) Lymph # (Auto) Runnels # (Auto) Baso # (Auto) Total Counted Seg Neutrophils % Lymphocytes % (Manual) Monocytes % (Manual) Eosinophils % (Manual) Neutrophils # (Manual) RBC Morphology Anisocytosis Macrocytosis APTT 50 H Sodium Potassium Chloride Carbon Dioxide BUN Creatinine Estimated GFR BUN/Creatinine Ratio Glucose Calcium Magnesium Troponin I [facility] Medical History Acute neck pain Body posture problem Cervical somatic dysfunction Chronic diastolic (congestive) heart failure Chronic neck pain Cranial somatic dysfunction DJD (degenerative joint disease), cervical Erectile dysfunction Esophageal stricture Essential hypertension Generalized anxiety disorder Gout History of colonic polyps 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 Impaired fasting glucose Macrocytosis associated with alcohol Mixed hyperlipidemia Neck stiffness Overweight Pelvic somatic dysfunction Polyneuropathy, unspecified Sacral region somatic dysfunction Segmental and somatic dysfunction of rib cage Tendonitis, Achilles, left Thoracic region somatic dysfunction Tinea unguium Upper extremity somatic dysfunction Venous (peripheral) insufficiency Social History details: , 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 seatbelt use: always Smoking Status: Former smoker alcohol intake: current Discharge Plan Discharge Plan Patient Disposition: Home Provider Discharge Comment: Followup with Dr. Fernandez this week; Call Dr. Mulligan for followup within 2 weeks Discharge orders & Medications Prescriptions: New Jardiance 10 mg tablet 10 mg PO DAILY Qty: 30 11RF Continued meloxicam 7.5 mg tablet See Rx Instructions PO DAILY PRN (Reason: neck pain) Qty: 60 5RF Rx Instructions: 1-2 orally daily PRN; levothyroxine 50 mcg tablet 50 mcg PO DAILY Qty: 90 3RF losartan 25 mg tablet 25 mg PO DAILY Qty: 90 3RF allopurinol 300 mg tablet 300 mg PO DAILY Qty: 90 3RF lorazepam 0.5 mg tablet 0.5 mg PO DAILY Qty: 20 0RF Vitamin B3 500 mcg 1 tab PO DAILY atorvastatin [Lipitor] 20 mg tablet 20 mg PO DAILY Qty: 90 3RF Changed furosemide 40 mg tablet 40 mg PO BID Qty: 180 3RF potassium chloride 10 mEq capsule, extended release 10 meq PO BID Qty: 180 3RF Follow up/Referrals: Hira Fernandez MD [Primary Care Provider, Internal Medicine] Discharge Health Status Care Plan Goals: Monitor daily weights and notify Dr. Fernandez if more than 3 pound weight gain occurs Diet/Activity/Treatments Diet: Regular and Low-sodium Visit Report/Discharge Packet Stand Alone Forms: Congestive Heart Failure, Patient Portal/API, Stroke Signs & Symptoms Discharge Data Primary Care Provider: Hira Fernandez V Quality VTE Deep Vein Thrombosis/Pulmonary Embolism Present on Admission: No MIPS - Admit I confirm the patient?s Advance Care Plan is present, Code status is documented, Surrogate decision maker is in patient?s record [If Yes, STOP here]: Yes MIPS - Meds 'Current medications' to include all prescriptions, [id number] products, herbals, cannabis/cannabidiol products, and vitamin/mineral/dietary (nutritional) supplements. I have utilized all available resources to obtain, update, or review the patient?s current medications. [If Yes, STOP here]: Yes MIPS - DC The patient has a history of heart transplant or Left Ventricular Assist Device (LVAD). If yes, STOP here.: No The patient has current or prior documentation of left ventricular ejection fraction (LVEF) less than or equal to 40%, or moderate or severely depressed left ventricular systolic function.: No A. The patient was prescribed or already taking an Angiotensin-Converting Enzyme (RL) Inhibitor, or Angiotensin Receptor Antonio (ARB).: Yes B. The patient was prescribed or already taking a beta-antonio. [If Yes to Both A & B, STOP here]: No Patient not prescribed/taking RL or ARB, no reason given.: No Patient not prescribed/taking beta-antonio, no reason given.: No PROFEE Charge Codes Discharge inpatient/observation: [id number]
== END 2025-05-08 11:12 | disposition home or self-care (01) | DRG 280 ==
LOC: ED 10:33 → AC 14:09
PROVIDERS: Admitting Provider Internal Medicine; Emergency Provider Family Medicine; PCP Internal Medicine; Referring Provider Family Medicine; Visit Provider Internal Medicine
DX: I11.0 Hypertensive heart disease with heart failure (principal); I50.33 Acute on chronic diastolic (congestive) heart failure; I21.A1 Myocardial infarction type 2; I47.20 Ventricular tachycardia, unspecified; I42.2 Other hypertrophic cardiomyopathy; E03.9 Hypothyroidism, unspecified; R73.02 Impaired glucose tolerance (oral); M10.9 Gout, unspecified; M19.90 Unspecified osteoarthritis, unspecified site; G62.9 Polyneuropathy, unspecified; Z82.49 Family history of ischemic heart disease and other diseases of the circulatory system; Z87.891 Personal history of nicotine dependence; E78.2 Mixed hyperlipidemia; Z88.8 Allergy status to other drugs, medicaments and biological substances; F41.1 Generalized anxiety disorder; Z85.810 Personal history of malignant neoplasm of tongue
CPT/HCPCS: 36415; 71045; 71275; 80048; 80053; 82550; 83690; 83735; 83880; 84155; 84165; 84484; 85007; 85014; 85018; 85025; 85049; 85610; 85730; 93005; 93306; 96374; 99284; J1644; J1938; J3475; Q9967

== ENCOUNTER → 2025-05-11 16:09 | Outpatient (CLI) | payer MEDICARE, OTHER, SELFPAY ==
[2025-05-06 16:35] VITALS: BMI 33.0
[2025-05-11 17:03] LABS: Hematocrit 45.2 % (41-53); Hemoglobin 15.3 g/dL (13.5-17.5); Mean Corpuscular HGB Conc 33.8 % (30-36); Mean Corpuscular Hemoglobin 37.8 PG (26-34); Mean Corpuscular Volume 111.9 fL (80-100); Platelet Count 170 X10^3/uL (150-400)
[2025-05-11 17:48] LABS: Blood Urea Nitrogen 34 mg/dL (9-20); Calcium 10.0 mg/dL (8.4-10.2); Carbon Dioxide 27 mmol/L (22-32); Chloride 98 mmol/L (98-107); Estimated Glomerular Filt Rate 59 mL/min (>60); Glucose 98 mg/dL (70-99); HEMOLYSIS < 15 (0-50); Potassium 4.1 mmol/L (3.4-5.1); Sodium 138 mmol/L (137-145)
[2025-05-11 18:37] LABS: Vitamin B12 Reflex MMA if <400 793 pg/mL (239-931)
== END ==
PROVIDERS: PCP Internal Medicine; Referring Provider Internal Medicine; Visit Provider Internal Medicine
DX: I50.32 Chronic diastolic (congestive) heart failure (principal); E53.8 Deficiency of other specified B group vitamins
CPT/HCPCS: 36415; 80048; 82607; 85027

== ENCOUNTER → 2025-06-06 09:03 | Outpatient (CLI) | payer MEDICARE, OTHER, SELFPAY ==
[2025-05-06 16:35] VITALS: BMI 33.0
[2025-06-06 10:52] LABS: Blood Urea Nitrogen 27 mg/dL (9-20); Calcium 10.1 mg/dL (8.4-10.2); Carbon Dioxide 26 mmol/L (22-32); Chloride 105 mmol/L (98-107); Estimated Glomerular Filt Rate > 60 mL/min (>60); Glucose 104 mg/dL (70-99); HEMOLYSIS < 15 (0-50); Potassium 4.5 mmol/L (3.4-5.1); Sodium 140 mmol/L (137-145)
== END ==
PROVIDERS: PCP Internal Medicine; Referring Provider Internal Medicine; Visit Provider Internal Medicine
DX: I50.32 Chronic diastolic (congestive) heart failure (principal)
CPT/HCPCS: 36415; 80048